=== PATIENT | female | born 1985 | race Caucasian/White ===

== ENCOUNTER 2018-03-19 21:16 | Emergency (ER) | payer MEDICAID ==
[2018-03-19] MEDS ORDERED: Sodium Chloride 0.9% 1,000 ML IV ONE (22:15)
[2018-03-19] MEDS ORDERED: Sodium Chloride 0.9% 10 ML Syringe FLUSH PRN (22:15)
--- NOTE | 2018-03-19 22:21 | EDM.PDOC ---
ED HPI GENERAL MEDICAL PROBLEM - General Chief Complaint: Cardiovascular Problem Stated Complaint: HAS ANEMIA/WEAK/DIZZY/HEART PALPATATIONS Time Seen by Provider: 03/19/18 22:03 Source of Information: Reports: Patient History Limitations: Reports: No Limitations - History of Present Illness INITIAL COMMENTS - FREE TEXT/NARRATIVE: Patient is a 32-year-old female with a history iron deficiency anemia who presents ED complaining of occasional palpitations with dyspnea, fatigue, and lightheadedness. Initially stated she gets dizzy with these episodes but actually it's more likely lightheadedness. 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 States over the past 2 weeks she's noticed these heart palpitations increasing. During these episodes she has some spasming along the lower aspect of her ribs bilaterally that radiates to the epigastric region described as sharp in nature that goes away quickly. She has also been experiencing some epigastric pain and worsening acid reflux. She is on iron supplementation and states that a few weeks ago with onset she had bowel movements that were darker than her normal stool color. This also subsided. She's been chronically anemic for quite some time with difficulties in controlling her her iron levels. Prior to moving in [place] she was supposed to be seeing a grades 7 8 tutor for further direction for her treatment. This has not occurred. Patient has been under stress recently with her job. She denies any history of blood clots or lower extremities or lungs. Denies any recent long travel, control, recent hospitalization, swelling or tenderness to the posterior aspect of her legs, shortness of breath or chest pain with admission to the ED, or any additional complaints. She has a history of endometriosis and has chronic pain to the left adnexal region. She's had a partial hysterectomy with her ovaries remaining. She's had a colonoscopy and EGD which have been normal. She smokes 4-6 cigarettes a day. Alcohol use rarely. Denies any recreational drug use. 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 Denies: Chest Pain, Edema, Syncope GI/Abdominal: Reports: Abdominal Pain (epigastric), Black Stool. Denies: Bloody Stool, Constipation, Diarrhea, Decreased Appetite, Distension, Flatus, Hematemesis, Nausea, Vomiting : Reports: No Symptoms Musculoskeletal: Reports: No Symptoms Skin: Reports: No Symptoms Neurological: Denies: Confusion, Dizziness, Headache, Numbness, Syncope, Tingling, Difficulty Walking, Weakness, Gait Disturbance Psychiatric: Reports: No Symptoms Hematologic/Lymphatic: Reports: Anemia ED EXAM, GENERAL - Physical Exam Exam: See Below Exam Limited By: No Limitations General Appearance: Alert, WD/WN, No Apparent Distress Eye Exam: Bilateral Eye: Normal Inspection, PERRL Ears: Hearing Grossly Normal Nose: Normal Inspection Throat/Mouth: Normal Inspection, Normal Oropharynx, Normal Voice, No Airway Compromise Head: Atraumatic, Normocephalic Neck: Normal Inspection, Supple Respiratory/Chest: No Respiratory Distress, Lungs Clear, Normal Breath Sounds, No Accessory Muscle Use, Chest Non-Tender Cardiovascular: Normal Peripheral Pulses, Regular Rate, Rhythm, No Murmur Peripheral Pulses: 2+: Radial (L), Radial (R) GI/Abdominal: Normal Bowel Sounds, Soft, No Organomegaly, No Distention, Tender (mild tenderness to the epigastric region) Back Exam: Normal Inspection. No: CVA Tenderness (L), CVA Tenderness (R) Extremities: Normal Inspection, Non-Tender, No Pedal Edema, Normal Capillary Refill Neurological: Alert, Oriented, CN II-XII Intact, Normal Cognition, No Motor/ Sensory Deficits Psychiatric: Normal Affect, Normal Mood Skin Exam: Warm, Dry, Intact, Normal Color, No Rash Course - Vital Signs Last Recorded V/S: Last Vital Signs Temp 97.4 F 03/19/18 21:30 Pulse 93 03/19/18 21:30 Resp 22 H 03/19/18 21:30 BP 146/81 H 03/19/18 21:30 Pulse Ox 100 03/19/18 21:30 Orthostatic Blood Pressure [ 130/81 Standing] Orthostatic Blood Pressure [ 126/75 Sitting] Orthostatic Blood Pressure [ 120/69 Supine] - Orders/Labs/Meds Orders: Active Orders 24 hr Category Date Time Status EKG 12 Lead [EKG Documentation Completion] [RC] STAT Care 03/19/18 22:15 Active Holter Monitor 48 Hours [RC] .PRN Care 03/19/18 23:27 Active Orthostatic Vital Signs [RC] ASDIRECTED Care 03/19/18 22:15 Active Peripheral IV Care [RC] . DIRECTED Care 03/19/18 22:15 Active Abdomen Series w Chest 1V [CR] Stat Exams 03/19/18 22:14 Taken OCCULT BLOOD DIAGNOSTIC [OP] Stat Lab 03/19/18 22:53 Ordered Peripheral IV Insertion Adult [OM.PC] Routine Oth 03/19/18 22:15 Ordered Labs: Laboratory Tests 03/19/18 03/19/18 03/19/18 Range/Units 22:30 22:30 22:30 WBC 12.99 H (3.98-10.04) K/mm3 RBC 4.54 (3.98-5.22) M/mm3 Hgb 11.5 (11.2-15.7) gm/L Hct 37.2 (34.1-44.9) % MCV 81.9 (79.4-94.8) fl MCH 25.3 L (25.6-32.2) pg MCHC 30.9 L (32.2-35.5) g/dl RDW Std Deviation 48.3 H (36.4-46.3) fL Plt Count 267 (182-369) K/mm3 MPV 10.1 (9.4-12.3) fl Neutrophils % (Manual) 67 H (40-60) % Band Neutrophils % 0 (0-10) % Lymphocytes % (Manual) 22 (20-40) % Atypical Lymphs % 0 % Monocytes % (Manual) 8 (2-10) % Eosinophils % (Manual) 3 (0.7-5.8) % Basophils % (Manual) 0 L (0.1-1.2) Platelet Estimate Adequate Plt Morphology Comment Normal Anisocytosis 1+ slight Microcytosis 1+ slight Macrocytosis 1+ slight RBC Morph Comment Abnormal Sodium 140 (136-145) mEq/L Potassium 4.1 (3.5-5.1) mEq/L Chloride 107 (98-107) mEq/L Carbon Dioxide 25 (21-32) mEq/L Anion Gap 12.1 (5-15) BUN 12 (7-18) mg/dL Creatinine 0.8 (0.55-1.02) mg/dL Est Cr Clr Drug Dosing 99.99 mL/min Estimated GFR (MDRD) > 60 (>60) mL/min BUN/Creatinine Ratio 15.0 (14-18) Glucose 92 (74-106) mg/dL Calcium 8.9 (8.5-10.1) mg/dL Magnesium 2.1 (1.8-2.4) mg/dl Total Bilirubin 0.1 L (0.2-1.0) mg/dL AST 15 (15-37) U/L ALT 22 (14-59) U/L Alkaline Phosphatase 82 (46-116) U/L Troponin I < 0.017 (0.00-0.056) ng/mL C-Reactive Protein 0.8 (<1.0) mg/dL Total Protein 7.7 (6.4-8.2) g/dl Albumin 3.9 (3.4-5.0) g/dl Globulin 3.8 gm/dL Albumin/Globulin Ratio 1.0 (1-2) Lipase 176 (73-393) U/L TSH 3rd Generation 2.485 (0.358-3.74) uIU/mL Urine Color (Yellow) Urine Appearance (Clear) Urine pH (5.0-8.0) Ur Specific [place] (1.005-1.030) Urine Protein (Negative) Urine Glucose (UA) (Negative) Urine Ketones (Negative) Urine Occult Blood (Negative) Urine Nitrite (Negative) Urine Bilirubin (Negative) Urine Urobilinogen (0.2-1.0) Ur Leukocyte Esterase (Negative) Urine RBC (0-5) /hpf Urine WBC (0-5) /hpf Ur Epithelial Cells (0-5) /hpf Urine Bacteria (FEW) /hpf Urine Mucus (FEW) /hpf 03/19/18 Range/Units 23:28 WBC (3.98-10.04) K/mm3 RBC (3.98-5.22) M/mm3 Hgb (11.2-15.7) gm/L Hct (34.1-44.9) % MCV (79.4-94.8) fl MCH (25.6-32.2) pg MCHC (32.2-35.5) g/dl RDW Std Deviation (36.4-46.3) fL Plt Count (182-369) K/mm3 MPV (9.4-12.3) fl Neutrophils % (Manual) (40-60) % Band Neutrophils % (0-10) % Lymphocytes % (Manual) (20-40) % Atypical Lymphs % % Monocytes % (Manual) (2-10) % Eosinophils % (Manual) (0.7-5.8) % Basophils % (Manual) (0.1-1.2) Platelet Estimate Plt Morphology Comment Anisocytosis Microcytosis Macrocytosis RBC Morph Comment Sodium (136-145) mEq/L Potassium (3.5-5.1) mEq/L Chloride (98-107) mEq/L Carbon Dioxide (21-32) mEq/L Anion Gap (5-15) BUN (7-18) mg/dL Creatinine (0.55-1.02) mg/dL Est Cr Clr Drug Dosing mL/min Estimated GFR (MDRD) (>60) mL/min BUN/Creatinine Ratio (14-18) Glucose (74-106) mg/dL Calcium (8.5-10.1) mg/dL Magnesium (1.8-2.4) mg/dl Total Bilirubin (0.2-1.0) mg/dL AST (15-37) U/L ALT (14-59) U/L Alkaline Phosphatase (46-116) U/L Troponin I (0.00-0.056) ng/mL C-Reactive Protein (<1.0) mg/dL Total Protein (6.4-8.2) g/dl Albumin (3.4-5.0) g/dl Globulin gm/dL Albumin/Globulin Ratio (1-2) Lipase (73-393) U/L TSH 3rd Generation (0.358-3.74) uIU/mL Urine Color Yellow (Yellow) Urine Appearance Slt cloudy H (Clear) Urine pH 7.0 (5.0-8.0) Ur Specific [place] 1.020 (1.005-1.030) Urine Protein Negative (Negative) Urine Glucose (UA) Negative (Negative) Urine Ketones Negative (Negative) Urine Occult Blood Negative (Negative) Urine Nitrite Negative (Negative) Urine Bilirubin Negative (Negative) Urine Urobilinogen 0.2 (0.2-1.0) Ur Leukocyte Esterase Negative (Negative) Urine RBC 0-5 (0-5) /hpf Urine WBC 0-5 (0-5) /hpf Ur Epithelial Cells 10-20 H (0-5) /hpf Urine Bacteria Few (FEW) /hpf Urine Mucus Not seen (FEW) /hpf Meds: Medications Discontinued Medications Generic Name Dose Route Start Last Admin Trade Name Freq PRN Reason Stop Dose Admin Sodium Chloride 1,000 mls @ 999 mls/hr 03/19/18 22:15 03/19/18 22:45 Normal Saline IV 03/19/18 23:15 999 mls/hr ONETIME ONE Administration Pantoprazole Sodium 40 mg 03/20/18 22:18 Protonix Iv IVPUSH 03/20/18 22:19 ONETIME ONE Pantoprazole Sodium 40 mg 03/19/18 22:38 03/19/18 22:46 Protonix Iv IVPUSH 03/19/18 22:39 40 mg ONETIME ONE Administration Sodium Chloride 10 ml 03/19/18 22:15 03/19/18 22:46 Saline Flush FLUSH 10 ml ASDIRECTED PRN Administration Keep Vein Open - Re-Assessments/Exams Free Text/Narrative Re-Assessment/Exam: IV established with normal saline 999 mL per hour and Protonix 40 mg IVP. Initial labs and studies will include: CBC, chem 14, CRP, tsh, mg, lipase, occult blood stool, troponin, UA, abdomen/chest series x-ray, orthostatic vitals , EKG. Orthostatic vitals were negative. EKG sinus rhythm at a rate of 92. NO acute ST changes noted. Stool hemoccult test negative for blood. Labs reviewed: Chemistry panel was essentially normal. Magnesium is 2.1. Troponin less than 0.017. CRP normal. Lipase normal. TSH 2.485. White blood cell count 12.99. Hemoglobin 11.5. Platelet count 267. X-rays of the abdomen and chest reviewed with Dr. Friedman with no concerning findings. 03/19/18 23:30 Reassessment, heart rates in the 70s. patient states she's feeling better with the above therapies. UA is still pending. I have ordered a 48-hour Holter monitor. She will establish care with Dr. Infante over at the [facility] this coming week for reevaluation and continued care. I'm informed the patient that she will take Prilosec 40 mg every day for the next 2 weeks. Refrain from consuming spicy foods, caffeinated beverages, chocolate, or eating/drinking within 4 hours ago in the bed. Patient agrees with plan. Return precautions discussed with the patient. She had knowledge understanding. Discharge instructions as documented. UA: Departure - Departure Time of Disposition: 23:49 Disposition: Home, Self-Care 01 Condition: Good Clinical Impression: Heart palpitations Instructions: Holter Monitoring, Palpitations, [id number] Referrals: Amy Infante MD [Primary Care Provider] - Forms: ED Department Discharge Additional Instructions: Holter monitor will be in place for 48 hours. Please call and make an appointment to be seen by Dr. Infante at the [facility] in [place] this coming week for reexamination and results of the Holter monitor. In addition will have you take Prilosec 40 mg every day half-hour prior to breakfast. Refrain from spicy foods, caffeinated beverages, chocolates, or eating/drinking within 4 hours a going to bed. Please return back to the ED if you develop any new or worsening symptoms as discussed. - My Orders Last 24 Hours: My Active Orders 03/19/18 22:14 Abdomen Series w Chest 1V [CR] Stat 03/19/18 22:15 EKG 12 Lead [EKG Documentation Completion] [RC] STAT Orthostatic Vital Signs [RC] ASDIRECTED Peripheral IV Care [RC] . DIRECTED Peripheral IV Insertion Adult [OM.PC] Routine 03/19/18 22:53 OCCULT BLOOD DIAGNOSTIC [OP] Stat 03/19/18 23:27 Holter Monitor 48 Hours [RC] .PRN - Assessment/Plan Last 24 Hours: My Active Orders 03/19/18 22:14 Abdomen Series w Chest 1V [CR] Stat 03/19/18 22:15 EKG 12 Lead [EKG Documentation Completion] [RC] STAT Orthostatic Vital Signs [RC] ASDIRECTED Peripheral IV Care [RC] . DIRECTED Peripheral IV Insertion Adult [OM.PC] Routine 03/19/18 22:53 OCCULT BLOOD DIAGNOSTIC [OP] Stat 03/19/18 23:27 Holter Monitor 48 Hours [RC] .PRN
[2018-03-19] MEDS ORDERED: Pantoprazole 40 MG Vial IVPUSH ONE (22:38)
[2018-03-20] MEDS ORDERED: Pantoprazole 40 MG Vial IVPUSH ONE (22:18)
--- NOTE | 2018-03-22 09:14 | CR ---
Abdominal series: Supine and upright views of the abdomen were obtained as well as frontal view of the chest. Comparison: No prior study. Heart size and mediastinum are normal. Lungs are clear. Bony structures are unremarkable. Bowel gas pattern is normal. Impression: 1. No abnormality is seen on abdominal series. Diagnostic code #1
== END 2018-03-20 00:02 | disposition home or self-care (01) ==
LOC: JD.ED 21:16 → SUPCPDRO 21:16 → JD.ED 03-20 00:02
DX: R00.2 Palpitations (principal); D64.9 Anemia, unspecified; F17.210 Nicotine dependence, cigarettes, uncomplicated; Z90.710 Acquired absence of both cervix and uterus; Z88.5 Allergy status to narcotic agent
CPT/HCPCS: 36415; 74022; 80053; 81001; 82270; 83690; 83735; 84443; 84484; 85007; 85027; 86140; 93005; 93225; 93226; 96361; 96374; 99285; C9113; J7040; J7050; 99284

== ENCOUNTER 2018-03-28 18:05 | Emergency (ER) | payer MEDICAID ==
--- NOTE | 2018-03-28 20:07 | EDM.PDOC ---
ED HPI GENERAL MEDICAL PROBLEM - General Chief Complaint: Cardiovascular Problem Stated Complaint: DIZZY Time Seen by Provider: 03/28/18 18:12 - History of Present Illness INITIAL COMMENTS - FREE TEXT/NARRATIVE: This is a 32-year-old female with no significant past medical history presenting with a chief complaint of palpitations. Of note the patient was seen last Monday in this emergency department for an identical chief complaint. At that time the PA was able to arrange for outpatient Holter monitoring which patient has completed and gets results on Monday from PCP Dr. Infante. Patient is presenting today because while at work and standing she had some palpitations and felt like she was going to pass out. She has some very minor associated chest pressure. She had no shortness of breath. The symptoms were not exertional in nature. They subsided after a few minutes. Patient has been getting palpitations daily approximate past week week and a half. She has no significant family history of cardiac disease. She has no history herself of being hypertensive she hasn't does not have a history of high cholesterol or diabetes either. She does have about a 5-pack-year smoking history. She was also told an echocardiogram should she received when she was that she has very minor mitral valve prolapse. She only drinks about 1 monster energy drink per day. She also only had one of those in the past week. She denies any other illicit drugs or stimulants. 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 Denies: Cough Cardiovascular: Reports: Chest Pain, Palpitations Endocrine: Reports: No Symptoms GI/Abdominal: Reports: No Symptoms : Reports: No Symptoms Musculoskeletal: Reports: No Symptoms Skin: Reports: No Symptoms Neurological: Reports: No Symptoms Psychiatric: Reports: No Symptoms ED EXAM, GENERAL - Physical Exam Exam: See Below Exam Limited By: Altered Mental Status General Appearance: Alert, No Apparent Distress Head: Atraumatic, Normocephalic Neck: Normal Inspection. No: Carotid Bruit Respiratory/Chest: No Respiratory Distress, Lungs Clear, Normal Breath Sounds Cardiovascular: Normal Peripheral Pulses, Regular Rate, Rhythm, No Murmur Extremities: Normal Inspection, Normal Range of Motion, Non-Tender Neurological: Alert, Oriented, CN II-XII Intact, No Motor/Sensory Deficits Psychiatric: Normal Affect, Normal Mood Skin Exam: Warm, Dry, Intact EKG INTERPRETATION EKG Date: 03/28/18 Time: 18:48 Rhythm: NSR Rate (Beats/Min): 84 [place]: Normal P-Wave: Present QRS: Normal ST-T: Normal QT: Normal Comparison: NA - No Prior EKG Course - Vital Signs Last Recorded V/S: Last Vital Signs Temp 36.8 C 03/28/18 18:14 Pulse 98 03/28/18 18:14 Resp 20 03/28/18 18:14 BP 121/75 03/28/18 18:14 Pulse Ox 100 03/28/18 18:14 - Orders/Labs/Meds Orders: Active Orders 24 hr Category Date Time Status EKG Documentation Completion [RC] STAT Care 03/28/18 18:32 Active Chest 1V Frontal [CR] Stat Exams 03/28/18 18:32 Taken Labs: Laboratory Tests 03/28/18 03/28/18 Range/Units 18:55 18:55 WBC 11.34 H (3.98-10.04) K/mm3 RBC 4.56 (3.98-5.22) M/mm3 Hgb 11.7 (11.2-15.7) gm/L Hct 36.7 (34.1-44.9) % MCV 80.5 (79.4-94.8) fl MCH 25.7 (25.6-32.2) pg MCHC 31.9 L (32.2-35.5) g/dl RDW Std Deviation 46.7 H (36.4-46.3) fL Plt Count 301 (182-369) K/mm3 MPV 9.9 (9.4-12.3) fl Neut % (Auto) 73.0 H (34.0-71.1) % Lymph % (Auto) 16.8 L (19.3-51.7) % [place] % (Auto) 6.7 (4.7-12.5) % Eos % (Auto) 3.1 (0.7-5.8) Baso % (Auto) 0.2 (0.1-1.2) % Neut # (Auto) 8.28 H (1.56-6.13) K/mm3 Lymph # (Auto) 1.91 (1.18-3.74) K/mm3 [place] # (Auto) 0.76 H (0.24-0.36) K/mm3 Eos # (Auto) 0.35 (0.04-0.36) K/mm3 Baso # (Auto) 0.02 (0.01-0.08) K/mm3 Sodium 140 (136-145) mEq/L Potassium 3.8 (3.5-5.1) mEq/L Chloride 104 (98-107) mEq/L Carbon Dioxide 24 (21-32) mEq/L Anion Gap 15.8 H (5-15) BUN 12 (7-18) mg/dL Creatinine 0.7 (0.55-1.02) mg/dL Est Cr Clr Drug Dosing 118.54 mL/min Estimated GFR (MDRD) > 60 (>60) mL/min BUN/Creatinine Ratio 17.1 (14-18) Glucose 87 (74-106) mg/dL Calcium 8.6 (8.5-10.1) mg/dL Total Bilirubin 0.2 (0.2-1.0) mg/dL AST 15 (15-37) U/L ALT 21 (14-59) U/L Alkaline Phosphatase 79 (46-116) U/L Troponin I < 0.017 (0.00-0.056) ng/mL Total Protein 7.8 (6.4-8.2) g/dl Albumin 3.9 (3.4-5.0) g/dl Globulin 3.9 gm/dL Albumin/Globulin Ratio 1.0 (1-2) - Re-Assessments/Exams Free Text/Narrative Re-Assessment/Exam: 03/28/18 20:05 32-year-old female with no significant past medical history presenting with palpitations. Vital signs are normal. Physical exam was unremarkable could auscultate no murmur. EKG was unremarkable as well with no evidence of Yin- Parkinson-White or prolonged QT syndrome. Patient takes no medications regularly with the exception of Prilosec. The patient's symptoms did not begin when she started Prilosec last week either. Today CMP reveals no electrolyte abnormalities. CBC shows no evidence of anemia either. She has a troponin which is negative. There've been no arrhythmias or abnormalities noted on telemetry here. Chest x-ray is unremarkable on my interpretation as well. At this time until the patient is safe for discharge and she may follow up with Dr. Infante on Monday for the results of her Holter monitoring. Patient does mention that she was symptomatic during the time she had the Holter monitoring son hopeful that this will be diagnostic of whatever arrhythmia she is experiencing. Patient was given strict return precautions all questions were answered. She is in agreement with the plan of treatment at this time. Departure - Departure Time of Disposition: 20:07 Disposition: Home, Self-Care 01 Clinical Impression: Palpitations Chest pain Qualifiers: Chest pain type: unspecified Qualified Code(s): R07.9 - Chest pain, unspecified Instructions: Palpitations, [id number] Referrals: PCP,None [Primary Care Provider] - Forms: ED Department Discharge Additional Instructions: You were seen in the emergency department tonight for palpitations. At this time he testing does not show any dangerous cause for these palpitations. It is not necessary for you to receive further testing tonight. Please follow-up with Dr. Infante on Monday for the results of her Holter monitoring. Until that time if he have any new or worsening chest pain, pressure, palpitations, shortness of breath please return to the emergency department for reevaluation. - My Orders Last 24 Hours: My Active Orders 03/28/18 18:32 EKG Documentation Completion [RC] STAT Chest 1V Frontal [CR] Stat - Assessment/Plan Last 24 Hours: My Active Orders 03/28/18 18:32 EKG Documentation Completion [RC] STAT Chest 1V Frontal [CR] Stat
== END 2018-03-28 20:17 | disposition home or self-care (01) ==
LOC: JD.ED 18:05
DX: R00.2 Palpitations (principal); R07.9 Chest pain, unspecified; F17.210 Nicotine dependence, cigarettes, uncomplicated; Z88.5 Allergy status to narcotic agent
CPT/HCPCS: 36415; 71045; 80053; 84484; 85025; 93005; 93010; 99284-25; 99285-25

== ENCOUNTER 2019-07-02 11:42 | Emergency (ER) | payer OTHER ==
--- NOTE | 2019-07-02 13:05 | EDM.PDOC ---
ED HPI GENERAL MEDICAL PROBLEM - General Chief Complaint: Abdominal Pain Stated Complaint: ABDOMINAL PAIN W/MONO Time Seen by Provider: 07/02/19 12:55 - History of Present Illness INITIAL COMMENTS - FREE TEXT/NARRATIVE: 34-year-old female presents emergency room with abdominal pain. This point is progressively getting worse Monday worse in the left side coming from below her ribs down into the left lower quadrant and she has radiating pain into her scapula. The patient was diagnosed with mono on Monday after about a week of progressive weakness and generally not feeling good along with a sore throat. She was seen in the walk-in clinic and had a negative strep test they checked [place] and it was positive. This was done at the [facility] walk-in clinic. She feels tired and fatigued. Not aware of any fevers or chills. Left Lower Abdomen Pain Score (Numeric/FACES): 10 - Related Data Allergies Allergy/AdvReac Type Severity Reaction Status Date / Time morphine Allergy Rash Verified 07/02/19 11:55 Home Meds: Home Meds Iron 1 tab PO BID 03/19/18 [History] Acetaminophen/HYDROcodone [[place] 325-5 MG] 1 - 2 tab PO Q6H #20 tablet 07/02/19 [Rx] Ondansetron [Zofran ODT] 4 mg PO Q6H PRN #10 tab.dis 07/02/19 [Rx] Past Medical History HEENT History: Reports: None Cardiovascular History: Reports: Other (See Below) Other Cardiovascular History: Mitral valve prolapse Respiratory History: Reports: Asthma Genitourinary History: Reports: Renal Calculus, Other (See Below) Other Genitourinary History: Cyst on kidney 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, Musculoskeletal History: Reports: None Neurological History: Reports: None Psychiatric History: Reports: None Endocrine/Metabolic History: Reports: Obesity/BMI 30+ Hematologic History: Reports: Anemia Immunologic History: Reports: None Oncologic (Cancer) History: Reports: None Dermatologic History: Reports: None - Infectious Disease History Infectious Disease History: Reports: None - Past Surgical History GI Surgical History: Reports: Colonoscopy, EGD Female Surgical History: Reports: Hysterectomy, Oophorectomy Social & Family History - Tobacco Use Smoking Status *Q: Current Every Day Smoker Years of Tobacco use: 10 Packs/Tins Daily: 0.5 - Caffeine Use Caffeine Use: Reports: Energy Drinks - Recreational Drug Use Recreational Drug Use: No ED ROS GENERAL - Review of Systems Review Of Systems: See Below Constitutional: Reports: No Symptoms HEENT: Reports: Throat Pain Respiratory: Reports: No Symptoms Cardiovascular: Reports: No Symptoms GI/Abdominal: Reports: Abdominal Pain, Nausea. Denies: Constipation, Diarrhea : Reports: No Symptoms Musculoskeletal: Reports: Other (Generally achy all over) Skin: Reports: No Symptoms Neurological: Reports: No Symptoms Psychiatric: Reports: No Symptoms Hematologic/Lymphatic: Reports: Swollen Glands. Denies: Easy Bleeding, Easy Bruising Immunologic: Reports: No Symptoms ED EXAM, GI/ABD - Physical Exam Exam: See Below Exam Limited By: No Limitations General Appearance: Alert, No Apparent Distress Eyes: Bilateral: Normal Appearance Ears: Normal External Exam, Normal Canal, Hearing Grossly Normal, Normal TMs Nose: Normal Inspection, Normal Mucosa, No Blood Throat/Mouth: Normal Inspection, Normal Lips, Normal Teeth, Normal Gums, Normal Voice, No Airway Compromise, Other (Erythematous posterior pharynx small amount of exudate noted) Head: Atraumatic, Normocephalic Neck: Normal Inspection, Lymphadenopathy (L), Lymphadenopathy (R) Respiratory/Chest: No Respiratory Distress, Lungs Clear, Normal Breath Sounds Cardiovascular: Regular Rate, Rhythm, No Edema, No Murmur GI/Abdominal Exam: Normal Bowel Sounds, Soft, Other (Over JVD rebound or guarding patient has worsening discomfort on her left side compared to were right side. I cannot clearly palpate the margin of the spleen or the liver.) Extremities: Normal Inspection, No Pedal Edema Neurological: Alert, Oriented, Normal Cognition Course - Vital Signs Last Recorded V/S: Last Vital Signs Temp 36.5 C 07/02/19 11:52 Pulse 103 H 07/02/19 11:52 Resp 16 07/02/19 11:52 BP 135/88 07/02/19 11:52 Pulse Ox 99 07/02/19 11:52 - Orders/Labs/Meds Orders: Active Orders 24 hr Category Date Time Status EKG Documentation Completion [RC] STAT Care 07/02/19 13:11 Active Labs: Laboratory Tests 07/02/19 07/02/19 07/02/19 Range/Units 12:27 12:27 14:25 WBC 8.72 (3.98-10.04) K/mm3 RBC 4.90 (3.98-5.22) M/mm3 Hgb 14.5 D (11.2-15.7) gm/dl Hct 43.4 (34.1-44.9) % MCV 88.6 D (79.4-94.8) fl MCH 29.6 (25.6-32.2) pg MCHC 33.4 (32.2-35.5) g/dl RDW Std Deviation 42.7 (36.4-46.3) fL Plt Count 242 (182-369) K/mm3 MPV 10.2 (9.4-12.3) fl Neutrophils % (Manual) 73 H (40-60) % Band Neutrophils % 0 (0-10) % Lymphocytes % (Manual) 22 (20-40) % Atypical Lymphs % 0 % Monocytes % (Manual) 4 (2-10) % Eosinophils % (Manual) 1 (0.7-5.8) % Basophils % (Manual) 0 L (0.1-1.2) Platelet Estimate Adequate RBC Morph Comment Normal Sodium 142 (136-145) mEq/L Potassium 3.8 (3.5-5.1) mEq/L Chloride 106 (98-107) mEq/L Carbon Dioxide 26 (21-32) mEq/L Anion Gap 13.8 (5-15) BUN 10 (7-18) mg/dL Creatinine 0.7 (0.55-1.02) mg/dL Est Cr Clr Drug Dosing 112.20 mL/min Estimated GFR (MDRD) > 60 (>60) mL/min BUN/Creatinine Ratio 14.3 (14-18) Glucose 99 (74-106) mg/dL Calcium 8.8 (8.5-10.1) mg/dL Total Bilirubin 0.2 (0.2-1.0) mg/dL AST 10 L (15-37) U/L ALT 21 (14-59) U/L Alkaline Phosphatase 76 (46-116) U/L Troponin I < 0.017 (0.00-0.056) ng/mL Total Protein 8.0 (6.4-8.2) g/dl Albumin 4.2 (3.4-5.0) g/dl Globulin 3.8 gm/dL Albumin/Globulin Ratio 1.1 (1-2) Lipase 89 (73-393) U/L Urine Color Yellow (Yellow) Urine Appearance Clear (Clear) Urine pH 7.0 (5.0-8.0) Ur Specific [place] 1.015 (1.005-1.030) Urine Protein Negative (Negative) Urine Glucose (UA) Negative (Negative) Urine Ketones Negative (Negative) Urine Occult Blood Negative (Negative) Urine Nitrite Negative (Negative) Urine Bilirubin Negative (Negative) Urine Urobilinogen 0.2 (0.2-1.0) Ur Leukocyte Esterase Negative (Negative) Urine RBC 0-5 (0-5) /hpf Urine WBC 0-5 (0-5) /hpf Ur Squamous Epith Cells 0-5 (0-5) /hpf Urine Bacteria Few (FEW) /hpf Urine Mucus Not seen (FEW) /hpf Meds: Medications Discontinued Medications Generic Name Dose Route Start Last Admin Trade Name Freq PRN Reason Stop Dose Admin Hydrocodone Bitart/Acetaminophen 1 tab 07/02/19 16:21 07/02/19 17:12 [place] 325-5 Mg PO 07/02/19 16:22 1 tab ONETIME ONE Administration Fentanyl 50 mcg 07/02/19 16:21 07/02/19 17:10 Sublimaze IVPUSH 07/02/19 16:22 50 mcg ONETIME ONE Administration Ondansetron HCl 4 mg 07/02/19 13:07 07/02/19 13:13 Zofran Odt PO 07/02/19 13:08 4 mg ONETIME ONE Administration - Re-Assessments/Exams Free Text/Narrative Re-Assessment/Exam: 07/02/19 16:30 Normal chemistries CBC does not show anything alarming urinalysis is not suggestive of any acute pathology. The patient had some relief nausea from her Zofran that we gave her. She's keeping fluids down. I was busy with a critical patient and wished to get her something for pain at this point we'll give her a little bit of fentanyl followed up with the hydrocodone anticipate discharge soon 07/02/19 17:51 She's had good relief with the [place] the fentanyl has worn off. Departure - Departure Time of Disposition: 16:31 Disposition: Home, Self-Care 01 Clinical Impression: Mononucleosis, Abdominal pain - Discharge Information Prescriptions: Acetaminophen/HYDROcodone [[place] 325-5 MG] 1 - 2 tab PO Q6H #20 tablet Ondansetron [Zofran ODT] 4 mg PO Q6H PRN #10 tab.dis PRN Reason: Nausea/Vomiting Referrals: PCP,None [Primary Care Provider] - Forms: ED Department Discharge Additional Instructions: Treatment the emergency room with any questions problems or worsening symptoms. Follow-up in the Hospital clinic for recheck in 2 days [phone]. Avoid any strenuous activity no contact sports. Sepsis Event Note - Evaluation Sepsis Screening Result: No Definite Risk - Focused Exam Vital Signs: Vital Signs Temp Pulse Resp BP Pulse Ox 07/02/19 11:52 36.5 C 103 H 16 135/88 99 Date Exam was Performed: 07/02/19 Time Exam was Performed: 17:57 - My Orders Last 24 Hours: My Active Orders 07/02/19 13:11 EKG Documentation Completion [RC] STAT - Assessment/Plan Last 24 Hours: My Active Orders 07/02/19 13:11 EKG Documentation Completion [RC] STAT
[2019-07-02] MEDS ORDERED: Ondansetron 4 MG Tab.DIS PO ONE (13:07)
[2019-07-02] MEDS ORDERED: fentaNYL 100 MCG/2 ML SDV IVPUSH ONE (16:21)
[2019-07-02] MEDS ORDERED: Acetaminophen/HYDROcodone 325-5 MG Tab PO ONE (16:21)
== END 2019-07-02 18:25 | disposition home or self-care (01) ==
LOC: JD.ED 11:42
DX: R10.32 Left lower quadrant pain (principal); B27.90 Infectious mononucleosis, unspecified without complication; D64.9 Anemia, unspecified; E66.9 Obesity, unspecified; Z68.33 Body mass index [BMI] 33.0-33.9, adult; F17.210 Nicotine dependence, cigarettes, uncomplicated; Z88.5 Allergy status to narcotic agent; Z79.899 Other long term (current) drug therapy
CPT/HCPCS: 36415; 80053; 81001; 83690; 84484; 85007; 85027; 93005; 96374; 99284; A9270; J3010; 93010; 99283

== ENCOUNTER 2019-08-09 14:32 | Emergency (ER) | payer BC, OTHER ==
--- NOTE | 2019-08-09 14:48 | EDM.PDOC ---
ED HPI GENERAL MEDICAL PROBLEM - General Chief Complaint: General Stated Complaint: DIZZY/LIGHT HEADED/RIGHT ARM HURTS Time Seen by Provider: 08/09/19 14:40 Source of Information: Reports: Patient, RN Notes Reviewed History Limitations: Reports: No Limitations - History of Present Illness INITIAL COMMENTS - FREE TEXT/NARRATIVE: Patient is a 34-year-old female who presents to the ED for the evaluation of dizziness/lightheadedness, and right arm pain. The patient notes that around 630 this morning she woke up, and had some right arm pain. This originates in her anterior upper chest just below her collarbone, and does radiate down her right arm. She states that the pain does worsen with movement. She did not take any sort of pain relief medications for this such as Tylenol ibuprofen. 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 She states that around 7 AM however she developed sudden onset dizziness and lightheadedness, she denies any headache with this. But she is not had any dizziness like this before ever. She states that when she is walking, she feels severely off-kilter, like she has been drinking all night. She is not having any nausea or vomiting due to this. She states that the dizziness feels as if there is the world spinning around her, and that the world is moving when she is sitting still. She is not having any blurred vision or double vision, facial pain, ears ringing or any facial droop or other neurologic symptoms. The patient does not have a primary care provider, she is also a smoker. 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) Other Treatments PUBLIC MESSAGE SERVICE SUPERVISOR: none Right Anterior Chest Pain Score (Numeric/FACES): 4 - Related Data Allergies Allergy/AdvReac Type Severity Reaction Status Date / Time morphine Allergy Rash Verified 07/02/19 11:55 Home Meds: Home Meds Iron 65 mg PO BID 08/09/19 [History] Mv-Min/Iron/Folic/Calcium/Vitk [Women's Daily Formula Tablet] 1 tab PO DAILY [History] Past Medical History Cardiovascular History: Reports: Other (See Below) Other Cardiovascular History: Mitral valve prolapse Respiratory History: Reports: Asthma Genitourinary History: Reports: Renal Calculus, Other (See Below) Other Genitourinary History: Cyst on kidney 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, Psychiatric History: Reports: Anxiety Endocrine/Metabolic History: Reports: Obesity/BMI 30+ Hematologic History: Reports: Anemia - Past Surgical History GI Surgical History: Reports: Colonoscopy, EGD Female Surgical History: Reports: Hysterectomy, Oophorectomy Social & Family History - Family History Neurological: Reports: CVA (states that 2 members of immediate family have had strokes at early age) - Tobacco Use Smoking Status *Q: Current Every Day Smoker Years of Tobacco use: 7 Packs/Tins Daily: 0.5 - Caffeine Use Caffeine Use: Reports: Energy Drinks - Recreational Drug Use Recreational Drug Use: No ED ROS GENERAL - Review of Systems Review Of Systems: See Below Constitutional: Denies: Fever, Chills HEENT: Reports: Vertigo (feelings of world spinning dizziness). Denies: Ear Pain, Rhinitis, Sinus Problem, Throat Pain, Vision Change Respiratory: Denies: Shortness of Breath Cardiovascular: Reports: Chest Pain (R anterior chest pain that radiates to R arm) GI/Abdominal: Denies: Abdominal Pain, Nausea, Vomiting : Denies: Dysuria Musculoskeletal: Reports: Arm Pain (R arm pain ) Neurological: Reports: Dizziness (world spinning dizziness of sudden onset), Gait Disturbance (states that she is very wobbly when she walks). Denies: Confusion, Headache, Pre-Existing Deficit, Syncope, Tingling, Trouble Speaking, Weakness ED EXAM, GENERAL - Physical Exam Exam: See Below Exam Limited By: No Limitations General Appearance: Alert, WD/WN, No Apparent Distress Eye Exam: Right Eye: Nystagmus (several tics of Rightward horizontal nystagmus, Pt states the dizziness was replicated at this time), Bilateral Eye: EOMI, Normal Inspection, PERRL Ears: Normal External Exam, Normal Canal, Hearing Grossly Normal, Normal TMs Nose: Normal Inspection Throat/Mouth: Normal Inspection, Normal Lips, Normal Teeth, Normal Gums, Normal Oropharynx, Normal Voice, No Airway Compromise Head: Atraumatic, Normocephalic Neck: Normal Inspection Respiratory/Chest: No Respiratory Distress, Lungs Clear, Normal Breath Sounds, No Accessory Muscle Use, Other (R anterior chest tender to palpation of 3-4th rib space) Cardiovascular: Normal Peripheral Pulses, Regular Rate, Rhythm, No Edema, No Murmur Peripheral Pulses: 3+: Radial (L), Radial (R) GI/Abdominal: Normal Bowel Sounds, Soft, Non-Tender, No Distention, No Mass Extremities: Slow Capillary Refill (mildly increased cap refill), Mottled ( bilateral upper and lower ) Neurological: Alert, Oriented, CN II-XII Intact (grossly), Normal Cognition, No Motor/Sensory Deficits (heel/st is appropriate, finger to nose is appropriate) Psychiatric: Normal Affect, Normal Mood Skin Exam: Warm, Dry, Intact, No Rash, Mottled (bilateral upper and lower extremities. hands are cold to touch) Course - Vital Signs Last Recorded V/S: Last Vital Signs Temp 97.1 F 08/09/19 14:48 Pulse 93 08/09/19 14:48 Resp 20 08/09/19 14:48 BP 136/95 H 08/09/19 14:48 Pulse Ox 100 08/09/19 14:48 - Orders/Labs/Meds Meds: Medications Discontinued Medications Generic Name Dose Route Start Last Admin Trade Name [place] PRN Reason Stop Dose Admin Meclizine HCl 25 mg 08/09/19 15:42 08/09/19 16:17 Antivert PO 08/09/19 15:43 25 mg ONETIME ONE Administration - Re-Assessments/Exams Free Text/Narrative Re-Assessment/Exam: 08/09/19 15:10 Patient presents to the ED for the evaluation of sudden onset dizziness/ lightheadedness, and also right arm pain. I do believe her right arm pain is due to costochondritis in nature, it is easily reproducible on exam. Further suspect the patient's dizziness and lightheadedness is due to vertigo, as it was replicated on exam as well with nystagmus noted. However due to her history of early age strokes in her family, patient was requesting a CT, I did explain the risk to benefit ratio of this, she notes that she was evaluated at the walk-in clinic and it was felt likely that it also was vertigo, but she was directed to come to the ER for a head CT to rule out any other changes, so she would like a head CT done today. I have ordered a head CT due to this reason, however I suspect there to be low yield of findings. If head CT is negative, will treat as vertigo and costochondritis and discharged the patient home. 08/09/19 15:42 CT was negative for any acute intracranial abnormalities. Patient will be given 25 mg of meclizine for suspected vertigo treatment, she will be discharged home and treated as such on outpatient basis with other general recommendations. Departure - Departure Time of Disposition: 16:26 Disposition: Home, Self-Care 01 Condition: Fair Clinical Impression: Vertigo, Musculoskeletal chest pain - Discharge Information *PRESCRIPTION DRUG MONITORING PROGRAM REVIEWED*: No *COPY OF PRESCRIPTION DRUG MONITORING REPORT IN PATIENT YANNICK: No Instructions: Vertigo, [id number], Chest Wall Pain, [id number] Referrals: PCP,None [Primary Care Provider] - Forms: ED Department Discharge Additional Instructions: You were evaluated in the ER today regarding your dizziness/lightheadedness and right arm pain. You did have a head CT done at today's visit, and this demonstrated no acute abnormalities or stroke. Your symptoms are clinically consistent with vertigo, you were treated with meclizine in this ER, this did seem to help relieve your symptoms fairly well. Recommend you take 25 mg of meclizine up to 4 times daily for further feelings of vertigo. This is an [id number] medication, commonly marketed as Antivert or Bonine, it may be located near Benadryl or medications for motion sickness. You may also ask the pharmacist present to help you locate it. Recommend you increase your oral fluid intake as well. Try to keep well rested. As for the right arm pain, this is likely due to a musculoskeletal strain of the chest wall, you may take 600 mg ibuprofen every 2 hours for further pain relief. Do not exceed 3200 mg of ibuprofen in a 24-hour time span. Please return to the ER at any time if your symptoms change or worsen. Sepsis Event Note - Focused Exam Vital Signs: Vital Signs Temp Pulse Resp BP Pulse Ox 08/09/19 14:48 97.1 F 93 20 136/95 H 100 Date Exam was Performed: 08/09/19 Time Exam was Performed: 21:16
--- NOTE | 2019-08-09 15:38 | CT ---
Head CT Technique: Multiple axial sections through the brain were obtained. Intravenous contrast was not utilized. Comparison: No prior intracranial imaging is available. Findings: Ventricles along with basal cisterns and sulci over the convexities appear within normal limits for the patient's age. No abnormal parenchymal densities are seen. No evidence of intracranial hemorrhage. No midline shift or mass effect is seen. Bone window settings were reviewed which showed the visualized paranasal sinuses and mastoid sinuses to appear clear. No acute calvarial abnormality is appreciated. Impression: 1. No abnormality is identified on noncontrast head CT exam. Diagnostic code #1 This report was dictated in [place] Standard Time
== END 2019-08-09 16:46 | disposition home or self-care (01) ==
LOC: JD.ED 14:32
DX: R42 Dizziness and giddiness (principal); R07.89 Other chest pain; F17.210 Nicotine dependence, cigarettes, uncomplicated; J45.909 Unspecified asthma, uncomplicated; E66.9 Obesity, unspecified; Z88.5 Allergy status to narcotic agent
CPT/HCPCS: 70450; 99284; A9270; 99283

== ENCOUNTER 2020-04-16 16:59 | Emergency (ER) | payer BC ==
[2020-04-16] MEDS ORDERED: Iopamidol 612 MG/ML 100 ML Bottle IVPUSH ONE (19:04)
[2020-04-16] MEDS: Sodium Chloride 0.9% 10 ML Syringe FLUSH PRN ×2 (19:40→20:44)
--- NOTE | 2020-04-16 20:25 | CT ---
CT chest Technique: Multiple axial sections sections were obtained from above the lung apices inferiorly through the lung bases. Intravenous contrast was utilized. Comparison: No prior chest CT is available, chest x-ray of 03/28/18. Mediastinum and hilar regions show no adenopathy or mass. No axillary adenopathy is seen. No pericardial fluid is seen. Lungs show no acute parenchymal change. Bone window settings were reviewed which shows no acute osseous finding. Impression: 1. Nothing acute is appreciated on CT study of the chest. Diagnostic code #1 CT abdomen and pelvis Technique: Multiple axial sections were obtained from above the dome of the diaphragm inferiorly through the pubic symphysis. Intravenous contrast was utilized. No oral contrast has been given. Findings: Liver contains no focal abnormality. Gallbladder contains no calcified gallstones. Adrenal glands show no nodule. Pancreas is normal. Kidneys show symmetric contrast enhancement. Small cyst is noted within the upper left kidney measuring 8 mm. No additional renal abnormality is seen. Pancreas shows no discrete abnormality. Aorta shows no aneurysm. No retroperitoneal adenopathy or mesenteric abnormalities are seen. No pelvic mass or adenopathy is identified. Appendix felt to be visualized and is normal. No free fluid is seen within the abdomen or pelvis. Bone window settings were reviewed. Disc space narrowing at L5-S1 with vacuum disc phenomena. Impression: 1. Nothing acute is seen on CT study of the abdomen and pelvis. Diagnostic code #2 Study was dictated in MDT
--- NOTE | 2020-04-16 20:28 | CT ---
CT cervical spine Technique: Multiple axial sections through the cervical spine were obtained. Study was obtained from above C1 inferiorly to the bottom of T2. Reconstructed sagittal and coronal images were reviewed. Findings: Vertebral body heights and disc spaces are fairly well preserved. No bony central or bony neural foraminal stenosis is seen. No fracture is seen. No subluxation is appreciated. Impression: 1. Nothing acute is appreciated on CT study of the cervical spine. Diagnostic code #1 Study was dictated in MDT
--- NOTE | 2020-04-16 20:32 | CT ---
Head CT Technique: Multiple axial sections through the brain were obtained. Intravenous contrast was utilized. Comparison: Prior head CT study of 08/09/19. Findings: Ventricles along with basal cisterns and sulci over the convexities are within normal limits for the patient's age. No abnormal parenchymal densities are seen. No evidence of intracranial hemorrhage. No midline shift or mass effect is seen. Bone window settings were reviewed. Opacified ethmoid sinuses are noted. Right frontal sinus is opacified. Air-fluid level appears to be present within left frontal sinus. Mild mucosal thickening within the sphenoid sinus as well as mild mucosal thickening within the maxillary sinuses is noted. This most likely represents pre-existing sinusitis. No acute calvarial finding is seen. Visualized mastoid sinuses are clear. Impression: 1. Sinus disease most likely representing pre-existing acute sinusitis. This may also represent acute on chronic sinusitis. 2. No acute intracranial abnormality is appreciated. Diagnostic code #2 Study was dictated in MDT
[2020-04-16] MEDS ORDERED: Ondansetron 4 MG/2 ML SDV IVPUSH ONE (20:38)
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
--- NOTE | 2020-04-16 21:05 | CR ---
Left hand: 3 views of the left hand were obtained. Comparison: No prior hand study. No good PA view was obtained. Joint spaces appear to be fairly well maintained. No discrete fracture, dislocation or other bony abnormality is appreciated. Impression: 1. Slightly suboptimal positioning. Within this limitation, nothing acute is definitely appreciated. Diagnostic code #2 Study was dictated in MDT
--- NOTE | 2020-04-16 21:05 | CR ---
Left shoulder: 3 views of the left shoulder were obtained. Comparison: No previous shoulder studies available. Glenohumeral joint and acromioclavicular joint appears normal. No acute fracture or other bony abnormality is appreciated. Impression: 1. No abnormality is identified on 3 view left shoulder exam. Diagnostic code #1 Study was dictated in MDT
== END 2020-04-16 23:03 | disposition home or self-care (01) ==
LOC: JD.ED 16:59
DX: S16.1XXA Strain of muscle, fascia and tendon at neck level, initial encounter (principal); S20.212A Contusion of left front wall of thorax, initial encounter; M79.642 Pain in left hand; J45.909 Unspecified asthma, uncomplicated; E66.9 Obesity, unspecified; Z68.33 Body mass index [BMI] 33.0-33.9, adult; F17.210 Nicotine dependence, cigarettes, uncomplicated; Z88.5 Allergy status to narcotic agent; V89.2XXA Person injured in unspecified motor-vehicle accident, traffic, initial encounter
CPT/HCPCS: 29125; 36415; 70450; 71260; 72125; 73030; 73130; 74177; 80053; 81003; 85025; 93005; 96374; 99284; J2405; Q9967

== ENCOUNTER 2020-06-04 15:53 | Emergency (ER) | payer BC, OTHER ==
[2020-06-04] MEDS ORDERED: Sodium Chloride 0.9% 1,000 ML IV STA (16:30)
[2020-06-04] MEDS ORDERED: Sodium Chloride 0.9% 10 ML Syringe FLUSH PRN ×2 (16:30→17:42)
[2020-06-04] MEDS ORDERED: Ondansetron 4 MG/2 ML SDV IVPUSH ONE (16:30)
[2020-06-04] MEDS ORDERED: HYDROmorphone 1 MG/ML Syringe IVPUSH ONE (16:32)
[2020-06-04] MEDS ORDERED: Iopamidol 612 MG/ML 100 ML Bottle IVPUSH ONE (17:42)
[2020-06-04] MEDS ORDERED: Diatrizoate Meglumine/Diatrizoate Sodium 37% 120 ML Bottle PO ONE (17:42)
[2020-06-04] MEDS ORDERED: HYDROmorphone 0.5 MG/0.5 ML Syringe IVPUSH ONE (19:30)
--- NOTE | 2020-06-04 19:38 | EDM.PDOC ---
ED HPI GENERAL MEDICAL PROBLEM - General Chief Complaint: Abdominal Pain Stated Complaint: ABDOMINAL PAIN Time Seen by Provider: 06/04/20 16:12 Source of Information: Reports: Patient History Limitations: Reports: No Limitations - History of Present Illness INITIAL COMMENTS - FREE TEXT/NARRATIVE: The patient presents with RLQ abdominal pain. This started yesterday. She has not felt well for a couple of days though. She just finished zithromax for an ear infection and had nausea. She has no fever, chills, cough, congestion, runny nose chest pain or shortness of breath. She still has her appendix and gallbladder. She has no dysuria or hematuria. Onset: Gradual Duration: Day(s): Location: Reports: Abdomen Quality: Reports: Sharp Severity: Moderate Improves with: Reports: None Worsens with: Reports: None Associated Symptoms: Reports: Nausea/Vomiting. Denies: Chest Pain, Cough, Fever/Chills, Headaches, Shortness of Breath Right Lower Abdomen Pain Score (Numeric/FACES): 7 - Related Data Allergies Allergy/AdvReac Type Severity Reaction Status Date / Time morphine Allergy Rash Verified 06/04/20 16:12 Home Meds: Home Meds Iron 65 mg PO BID 08/09/19 [History] Mv-Min/Iron/Folic/Calcium/Vitk [Women's Daily Formula Tablet] 1 tab PO DAILY 08/09/19 [History] Hydrocodone/Acetaminophen [Hydrocodone-Acetamin 5-325 mg] 1 - 2 each PO Q6HR PRN #20 tablet 06/04/20 [Rx] Past Medical History HEENT History: Reports: None Cardiovascular History: Reports: Other (See Below) Other Cardiovascular History: Mitral valve prolapse Respiratory History: Reports: Asthma Gastrointestinal History: Reports: GERD Genitourinary History: Reports: Other (See Below) Other Genitourinary History: Cyst on kidney 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: 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, Musculoskeletal History: Reports: None Neurological History: Reports: None Psychiatric History: Reports: Anxiety Endocrine/Metabolic History: Reports: Obesity/BMI 30+ Hematologic History: Reports: Anemia Immunologic History: Reports: None Oncologic (Cancer) History: Reports: None Dermatologic History: Reports: None - Infectious Disease History Infectious Disease History: Reports: None - Past Surgical History Head Surgeries/Procedures: Reports: None HEENT Surgical History: Reports: Oral Surgery GI Surgical History: Reports: Colonoscopy, EGD Female Surgical History: Reports: Hysterectomy, Oophorectomy Social & Family History - Family History Family Medical History: No Pertinent Family History Cardiac: Reports: Heart Valve Replacement, Hypertension Neurological: Reports: CVA Endocrine/Metabolic: Reports: Diabetes, type II - Tobacco Use Tobacco Use Status *Q: Current Every Day Tobacco User Years of Tobacco use: 13 Packs/Tins Daily: 0.5 - Caffeine Use Caffeine Use: Reports: Energy Drinks - Recreational Drug Use Recreational Drug Use: No ED ROS GENERAL - Review of Systems Review Of Systems: See Below Constitutional: Reports: No Symptoms HEENT: Reports: No Symptoms Respiratory: Reports: No Symptoms Cardiovascular: Reports: No Symptoms Endocrine: Reports: No Symptoms GI/Abdominal: Reports: Abdominal Pain, Nausea. Denies: Diarrhea, Vomiting : Reports: No Symptoms ED EXAM, GI/ABD - Physical Exam Exam: See Below Exam Limited By: No Limitations General Appearance: Alert, No Apparent Distress Ears: Normal External Exam Nose: Normal Inspection Head: Atraumatic, Normocephalic Neck: Normal Inspection Respiratory/Chest: No Respiratory Distress, Lungs Clear, Normal Breath Sounds Cardiovascular: Regular Rate, Rhythm, No Edema, No Murmur GI/Abdominal Exam: Soft, No Mass, Tender (Moderate tenderness to the RLQ) Course - Vital Signs Last Recorded V/S: Last Vital Signs Temp 96.8 F L 06/04/20 16:15 Pulse 99 06/04/20 16:15 Resp 18 06/04/20 16:15 BP 138/70 06/04/20 16:15 Pulse Ox 100 06/04/20 16:15 - Orders/Labs/Meds Orders: Active Orders 24 hr Category Date Time Status Peripheral IV Care [RC] . DIRECTED Care 06/04/20 16:31 Active Abdomen Pelvis w Cont [CT] Stat Exams 06/04/20 16:30 Taken Sodium Chloride 0.9% [Saline Flush] Med 06/04/20 16:30 Active 10 ml FLUSH ASDIRECTED PRN Sodium Chloride 0.9% [Saline Flush] Med 06/04/20 17:42 Active 10 ml FLUSH ONETIME PRN ED Antiemetic Medication Reflex [OM.PC] Stat Oth 06/04/20 16:31 Ordered Peripheral IV Insertion Adult [OM.PC] Stat Oth 06/04/20 16:30 Ordered Medication Orders Sodium Chloride (Saline Flush) 10 ml FLUSH ASDIRECTED PRN PRN Reason: Keep Vein Open Last Admin: 06/04/20 17:17 Dose: 10 ml Documented by: JARVIS Sodium Chloride (Saline Flush) 10 ml FLUSH ONETIME PRN PRN Reason: Keep Vein Open Last Admin: 06/04/20 18:30 Dose: 10 ml Documented by: [id number] Labs: Laboratory Tests 06/04/20 06/04/20 06/04/20 Range/Units 17:05 17:05 17:05 WBC 10.07 H (3.98-10.04) K/mm3 RBC 4.81 (3.98-5.22) M/mm3 Hgb 14.4 (11.2-15.7) gm/dl Hct 44.0 (34.1-44.9) % MCV 91.5 (79.4-94.8) fl MCH 29.9 (25.6-32.2) pg MCHC 32.7 (32.2-35.5) g/dl RDW Std Deviation 44.1 (36.4-46.3) fL Plt Count 247 (182-369) K/mm3 MPV 10.0 (9.4-12.3) fl Neut % (Auto) 72.9 H (34.0-71.1) % Lymph % (Auto) 13.2 L (19.3-51.7) % [place] % (Auto) 6.8 (4.7-12.5) % Eos % (Auto) 6.5 H (0.7-5.8) Baso % (Auto) 0.2 (0.1-1.2) % Neut # (Auto) 7.35 H (1.56-6.13) K/mm3 Lymph # (Auto) 1.33 (1.18-3.74) K/mm3 [place] # (Auto) 0.68 H (0.24-0.36) K/mm3 Eos # (Auto) 0.65 H (0.04-0.36) K/mm3 Baso # (Auto) 0.02 (0.01-0.08) K/mm3 Manual Slide Review Normal smear Sodium 138 (136-145) mEq/L Potassium 3.9 (3.5-5.1) mEq/L Chloride 104 (98-107) mEq/L Carbon Dioxide 24 (21-32) mEq/L Anion Gap 13.9 (5-15) BUN 10 (7-18) mg/dL Creatinine 0.7 (0.55-1.02) mg/dL Est Cr Clr Drug Dosing 116.39 mL/min Estimated GFR (MDRD) > 60 (>60) mL/min BUN/Creatinine Ratio 14.3 (14-18) Glucose 90 (74-106) mg/dL Calcium 9.0 (8.5-10.1) mg/dL Total Bilirubin 0.3 (0.2-1.0) mg/dL AST 12 L (15-37) U/L ALT 24 (14-59) U/L Alkaline Phosphatase 80 (46-116) U/L Total Protein 7.7 (6.4-8.2) g/dl Albumin 3.9 (3.4-5.0) g/dl Globulin 3.8 gm/dL Albumin/Globulin Ratio 1.0 (1-2) Lipase 78 (73-393) U/L HCG, Qual Negative (NEGATIVE) Urine Color (Yellow) Urine Appearance (Clear) Urine pH (5.0-8.0) Ur Specific Telephone (1.005-1.030) Urine Protein (Negative) Urine Glucose (UA) (Negative) Urine Ketones (Negative) Urine Occult Blood (Negative) Urine Nitrite (Negative) Urine Bilirubin (Negative) Urine Urobilinogen (0.2-1.0) Ur Leukocyte Esterase (Negative) Urine RBC (0-5) /hpf Urine WBC (0-5) /hpf Ur Squamous Epith Cells (0-5) /hpf Urine Bacteria (FEW) /hpf Urine Mucus (FEW) /hpf 06/04/20 Range/Units 17:08 WBC (3.98-10.04) K/mm3 RBC (3.98-5.22) M/mm3 Hgb (11.2-15.7) gm/dl Hct (34.1-44.9) % MCV (79.4-94.8) fl MCH (25.6-32.2) pg MCHC (32.2-35.5) g/dl RDW Std Deviation (36.4-46.3) fL Plt Count (182-369) K/mm3 MPV (9.4-12.3) fl Neut % (Auto) (34.0-71.1) % Lymph % (Auto) (19.3-51.7) % [place] % (Auto) (4.7-12.5) % Eos % (Auto) (0.7-5.8) Baso % (Auto) (0.1-1.2) % Neut # (Auto) (1.56-6.13) K/mm3 Lymph # (Auto) (1.18-3.74) K/mm3 [place] # (Auto) (0.24-0.36) K/mm3 Eos # (Auto) (0.04-0.36) K/mm3 Baso # (Auto) (0.01-0.08) K/mm3 Manual Slide Review Sodium (136-145) mEq/L Potassium (3.5-5.1) mEq/L Chloride (98-107) mEq/L Carbon Dioxide (21-32) mEq/L Anion Gap (5-15) BUN (7-18) mg/dL Creatinine (0.55-1.02) mg/dL Est Cr Clr Drug Dosing mL/min Estimated GFR (MDRD) (>60) mL/min BUN/Creatinine Ratio (14-18) Glucose (74-106) mg/dL Calcium (8.5-10.1) mg/dL Total Bilirubin (0.2-1.0) mg/dL AST (15-37) U/L ALT (14-59) U/L Alkaline Phosphatase (46-116) U/L Total Protein (6.4-8.2) g/dl Albumin (3.4-5.0) g/dl Globulin gm/dL Albumin/Globulin Ratio (1-2) Lipase (73-393) U/L HCG, Qual (NEGATIVE) Urine Color Light yellow (Yellow) Urine Appearance Clear (Clear) Urine pH 7.0 (5.0-8.0) Ur Specific Telephone 1.025 (1.005-1.030) Urine Protein Negative (Negative) Urine Glucose (UA) Negative (Negative) Urine Ketones Negative (Negative) Urine Occult Blood Negative (Negative) Urine Nitrite Negative (Negative) Urine Bilirubin Negative (Negative) Urine Urobilinogen 0.2 (0.2-1.0) Ur Leukocyte Esterase Negative (Negative) Urine RBC 0-5 (0-5) /hpf Urine WBC 0-5 (0-5) /hpf Ur Squamous Epith Cells 10-20 H (0-5) /hpf Urine Bacteria Moderate H (FEW) /hpf Urine Mucus Few (FEW) /hpf Meds: Medications Generic Name Dose Route Start Last Admin Trade Name Freq PRN Reason Stop Dose Admin Sodium Chloride 10 ml 06/04/20 16:30 06/04/20 17:17 Saline Flush FLUSH 10 ml ASDIRECTED PRN Administration Keep Vein Open Sodium Chloride 10 ml 06/04/20 17:42 06/04/20 18:30 Saline Flush FLUSH 10 ml ONETIME PRN Administration Keep Vein Open Discontinued Medications Generic Name Dose Route Start Last Admin Trade Name Freq PRN Reason Stop Dose Admin Diatrizoate Meglum/Diatrizoate Sod 90 ml 06/04/20 17:42 06/04/20 18:30 Gastrografin 37% PO 06/04/20 17:43 90 ml ONETIME ONE Administration Hydromorphone HCl 1 mg 06/04/20 16:32 06/04/20 17:12 Dilaudid IVPUSH 06/04/20 16:33 1 mg ONETIME ONE Administration Hydromorphone HCl 0.5 mg 06/04/20 19:30 Dilaudid IVPUSH 06/04/20 19:31 ONETIME ONE Sodium Chloride 1,000 mls @ 1,000 mls/hr 06/04/20 16:30 06/04/20 17:12 Normal Saline IV 06/04/20 17:29 1,000 mls/hr .BOLUS STA Administration Iopamidol 100 ml 06/04/20 17:42 06/04/20 18:30 Isovue-300 (61%) IVPUSH 06/04/20 17:43 100 ml ONETIME ONE Administration Ondansetron HCl 4 mg 06/04/20 16:30 06/04/20 17:12 Zofran IVPUSH 06/04/20 16:31 4 mg ONETIME ONE Administration - Re-Assessments/Exams Free Text/Narrative Re-Assessment/Exam: 06/04/20 19:35 I ordered an IV NS 1L bolus, zofran 4mg IV, dilaudid 1mg IV, labs, UA and a CT of the abdomen and pelvis. Her WBC was slightly elevated at 10.07. Her CMP looks good. Her lipase and HCG are negative. Her UA shows no UTI. Her CT shows prominent right adnexal lesions present measuring up to 2.8cm. Follow up pelvic US may be of further benefit as clinically warranted. No evidence of appendicitis. She still has some pain so I ordered dilaudid 0.5mg IV. Departure - Departure Time of Disposition: 19:40 Disposition: Home, Self-Care 01 Condition: Good Clinical Impression: Ovarian cyst Qualifiers: Laterality: right Qualified Code(s): N83.201 - Unspecified ovarian cyst, right side - Discharge Information *PRESCRIPTION DRUG MONITORING PROGRAM REVIEWED*: No *COPY OF PRESCRIPTION DRUG MONITORING REPORT IN PATIENT YANNICK: No Prescriptions: Hydrocodone/Acetaminophen [Hydrocodone-Acetamin 5-325 mg] 1 - 2 each PO Q6HR PRN #20 tablet PRN Reason: Pain Referrals: Tammy Momin PA-C [Primary Care Provider] - 1 Week Additional Instructions: Take motrin or tylenol for pain. If that does not work, try the hydrocodone. Follow up with Tammy Momin for an ultrasound. Please return if you are worse. Sepsis Event Note (ED) - Evaluation Sepsis Screening Result: No Definite Risk - Focused Exam Vital Signs: Vital Signs Temp Pulse Resp BP Pulse Ox 06/04/20 16:15 96.8 F L 99 18 138/70 100 - My Orders Last 24 Hours: My Active Orders 06/04/20 16:30 Abdomen Pelvis w Cont [CT] Stat Sodium Chloride 0.9% [Saline Flush] 10 ml FLUSH ASDIRECTED PRN Peripheral IV Insertion Adult [OM.PC] Stat 06/04/20 16:31 Peripheral IV Care [RC] . DIRECTED ED Antiemetic Medication Reflex [OM.PC] Stat 06/04/20 17:42 Sodium Chloride 0.9% [Saline Flush] 10 ml FLUSH ONETIME PRN - Assessment/Plan Last 24 Hours: My Active Orders 06/04/20 16:30 Abdomen Pelvis w Cont [CT] Stat Sodium Chloride 0.9% [Saline Flush] 10 ml FLUSH ASDIRECTED PRN Peripheral IV Insertion Adult [OM.PC] Stat 06/04/20 16:31 Peripheral IV Care [RC] . DIRECTED ED Antiemetic Medication Reflex [OM.PC] Stat 06/04/20 17:42 Sodium Chloride 0.9% [Saline Flush] 10 ml FLUSH ONETIME PRN
--- NOTE | 2020-06-05 08:39 | CT ---
PROCEDURE INFORMATION: Exam: CT Abdomen And Pelvis With Contrast Exam date and time: 06/04/2020 5:48 PM Age: 34 years old Clinical indication: Abdominal pain; Localized; Right lower quadrant (rlq); Additional info: IV came apart at the hub upon first and second injection. Contrast injection had to be done with the patient's right arm down by her side to allow for contrast administration. TECHNIQUE: Imaging protocol: Computed tomography of the abdomen and pelvis with intravenous contrast. Radiation optimization: All CT scans at this facility use at least one of these dose optimization techniques: automated exposure control; mA and/or kV adjustment per patient size (includes targeted exams where dose is matched to clinical indication); or iterative reconstruction. Contrast material: ISOVUE 300; Contrast volume: 100 ml; Contrast route: INTRAVENOUS (IV); Other contrast: Oral, Gastrograffin, 90; COMPARISON: CT Chest Abdomen Pelvis w Cont 04/16/2020 6:51 PM FINDINGS: Lungs: Atelectatic changes noted within the lung bases. Liver: Normal. No mass. Gallbladder and bile ducts: Normal. No calcified stones. No ductal dilation. Pancreas: Normal. No ductal dilation. Spleen: Normal. No splenomegaly. Adrenal glands: Normal. No mass. Kidneys and ureters: Normal. No hydronephrosis. Stomach and bowel: Unremarkable. No obstruction. No mucosal thickening. Appendix: No evidence of appendicitis. Intraperitoneal space: Normal. No significant fluid collection. Vasculature: Unremarkable. No abdominal aortic aneurysm. Lymph nodes: Unremarkable. No enlarged lymph nodes. Urinary bladder: Unremarkable as visualized. Reproductive: Prominent right adnexal lesions present measuring up to 2.8 cm. Uterus is not well seen. Bones/joints: Unremarkable. No acute fracture. Soft tissues: There is a fat-containing umbilical hernia. IMPRESSION: 1. Prominent right adnexal lesions present measuring up to 2.8 cm. Follow-up pelvic ultrasound may be of further benefit, as clinically warranted. 2. No evidence of appendicitis. Thank you for allowing us to participate in the care of your patient. Dictated and Authenticated by: Tarik Winn DO 06/04/2020 8:04 PM Central Time ([place] & [place]) [facility]
== END 2020-06-04 20:05 | disposition home or self-care (01) ==
LOC: JD.ED 15:53
DX: N83.201 Unspecified ovarian cyst, right side (principal); J45.909 Unspecified asthma, uncomplicated; E66.9 Obesity, unspecified; F17.210 Nicotine dependence, cigarettes, uncomplicated; Z68.32 Body mass index [BMI] 32.0-32.9, adult; Z88.5 Allergy status to narcotic agent
CPT/HCPCS: 36415; 74177; 80053; 81001; 83690; 84703; 85025; 96374; 96375; 96376; 99284; J1170; J2405; J7030; Q9963; Q9967

== ENCOUNTER 2020-06-12 08:45 | Day surgery (SDC) | payer BC ==
[~2020-06-12 08:45] MED LIST: Dexamethasone 4 MG/ML 5 ML MDV ONE; Lactated Ringers 1,000 ML IV SCH; Lidocaine 1% 4 ML ONE; Lidocaine 1%/Sod Bicarbonate in NS 8.4% 1 ML Syringe IDERM PRN; Midazolam 1 MG/ML 2 ML SDV ONE; Ondansetron 4 MG/2 ML SDV ONE; Propofol 200 MG/20 ML SDV ONE; Rocuronium 50 MG/5 ML Vial ONE; Sodium Chloride 0.9% 10 ML Syringe FLUSH PRN; fentaNYL 250 MCG/5 ML SDV ONE
[2020-06-12] MEDS ORDERED: Bupivacaine 0.5% 30 ML SDV ONE (09:54)
[2020-06-12] MEDS ORDERED: Albuterol 0.083% 2.5 MG/3 ML Neb Soln NEB ONE (10:30)
[2020-06-12] MEDS ORDERED: HYDROmorphone 0.5 MG/0.5 ML Syringe ONE (10:34)
[2020-06-12] MEDS ORDERED: Ketamine 500 mg/10 ML MDV ONE (10:39)
[2020-06-12] MEDS ORDERED: fentaNYL 100 MCG/2 ML SDV IVPUSH PRN (10:50)
[2020-06-12] MEDS ORDERED: Ondansetron 4 MG/2 ML SDV IVPUSH PRN (10:50)
--- NOTE | 2020-06-12 10:50 | PCM.PREANE ---
Preanesthetic Assessment - Procedure Proposed Procedure: Diagnostic Laparoscopy - Anesthesia/Transfusion/Family Hx Anesthesia History: Prior Anesthesia Without Reaction Family History of Anesthesia Reaction: No - Review of Systems General: No Symptoms Pulmonary: No Symptoms (Smoker 1/4 ppd. Asthma many years ago, Inhaler use 10 years ago. ) Cardiovascular: No Symptoms Gastrointestinal: Other (GERD, controlled with current medications. ) Neurological: No Symptoms Other: Reports: None (Obesity BMI 33, hoarse voice. ) - Physical Assessment NPO Status Date: 06/11/20 NPO Status Time: 23:00 Vital Signs: Last Vital Signs Temp 36.7 C 06/12/20 08:50 Pulse 73 06/12/20 08:50 Resp 16 06/12/20 08:50 BP 117/69 06/12/20 08:50 Pulse Ox 95 06/12/20 08:50 Height: 1.7 m Weight: 95.708 kg ASA Class: 2 Mental Status: Alert & Oriented x3 Airway Class: Mallampati = 2 Dentition: Reports: Broken Tooth/Teeth (Lower boken, secure. ) Thyro-Mental Finger Breadths: 3 Mouth Opening Finger Breadths: 3 ROM/Head Extension: Full Lungs: Clear to Auscultation, Normal Respiratory Effort Cardiovascular: Regular Rate, Regular Rhythm - Lab Values: Laboratory Last Values Urine Color Yellow (Yellow) 06/12/20 08:48 Urine Appearance Clear (Clear) 06/12/20 08:48 Urine pH 6.0 (5.0-8.0) 06/12/20 08:48 Ur Specific Rock > or = 1.030 (1.005-1.030) 06/12/20 08:48 Urine Protein Negative (Negative) 06/12/20 08:48 Urine Glucose (UA) Negative (Negative) 06/12/20 08:48 Urine Ketones Negative (Negative) 06/12/20 08:48 Urine Occult Blood Negative (Negative) 06/12/20 08:48 Urine Nitrite Negative (Negative) 06/12/20 08:48 Urine Bilirubin Negative (Negative) 06/12/20 08:48 Urine Urobilinogen 0.2 (0.2-1.0) 06/12/20 08:48 Ur Leukocyte Esterase Negative (Negative) 06/12/20 08:48 Blood Type A POSITIVE 06/12/20 09:10 Gel Antibody Screen Negative 06/12/20 09:10 - Allergies Allergies/Adverse Reactions: Allergies Allergy/AdvReac Type Severity Reaction Status Date / Time morphine Allergy Rash Verified 06/11/20 13:13 - Anesthesia Plan Pre-Op Medication Ordered: Other (Albuterol Nebulizer Treatment ) - Acknowledgements Anesthesia Type Planned: General Anesthesia Pt an Appropriate Candidate for the Planned Anesthesia: Yes Alternatives and Risks of Anesthesia Discussed w Pt/Guardian: Yes Pt/Guardian Understands and Agrees with Anesthesia Plan: Yes PreAnesthesia Questionnaire HEENT History: Reports: None Cardiovascular History: Reports: Other (See Below) Other Cardiovascular History: Mitral valve prolapse, palpitations, racing heart beat Respiratory History: Reports: Asthma Gastrointestinal History: Reports: GERD Genitourinary History: Reports: Other (See Below) Other Genitourinary History: Cyst on kidney [employer] History: Reports: 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, , Other (See Below) Other OB/BYN History: PALLAVI III with severe dysplasia, endometriosis, PCOS, pelvic pain, exploratory laparotomy Musculoskeletal History: Reports: None Neurological History: Reports: None Psychiatric History: Reports: Anxiety Endocrine/Metabolic History: Reports: Obesity/BMI 30+ Hematologic History: Reports: Anemia Immunologic History: Reports: None Oncologic (Cancer) History: Reports: None Dermatologic History: Reports: None - Infectious Disease History Infectious Disease History: Reports: MRSA, Other (See Below) Other Infectious Disease History: 06/09 has screened negative for mrsa - Past Surgical History Head Surgeries/Procedures: Reports: None HEENT Surgical History: Reports: Oral Surgery Cardiovascular Surgical History: Reports: None Respiratory Surgical History: Reports: None GI Surgical History: Reports: Colonoscopy, EGD Female Surgical History: Reports: Hysterectomy Endocrine Surgical History: Reports: None Neurological Surgical History: Reports: None Musculoskeletal Surgical History: Reports: None Oncologic Surgical History: Reports: None Dermatological Surgical History: Reports: None - SUBSTANCE USE Tobacco Use Status *Q: Current Every Day Tobacco User Recreational Drug Use History: No - HOME MEDS Home Medications: Home Meds Hydrocodone/Acetaminophen [Hydrocodone-Acetamin 5-325 mg] 1 - 2 each PO Q6HR PRN #20 tablet 06/04/20 [Rx] Ferrous Sulfate [Iron] 325 mg PO BID 06/11/20 [History] Omeprazole Magnesium [Prilosec Otc] 20 mg PO DAILY 06/11/20 [History] Ondansetron [Ondansetron ODT] 4 mg PO Q6H PRN 06/11/20 [History] - CURRENT (IN HOUSE) MEDS Current Meds: Current Medications Lactated Ringer's (Ringers, Lactated) 1,000 mls @ 125 mls/hr IV ASDIRECTED ALEX Stop: 06/12/20 23:00 Last Admin: 06/12/20 09:15 Dose: 125 mls/hr Documented by: Lidocaine/Sodium Bicarbonate (Buffered Lidocaine 1% In Ns 8.4%) 0.25 ml IDERM ONETIME PRN PRN Reason: Prior to IV Start Stop: 06/12/20 18:00 Last Admin: 06/12/20 09:14 Dose: 0.25 ml Documented by: Sodium Chloride (Saline Flush) 10 ml FLUSH ASDIRECTED PRN PRN Reason: Keep Vein Open Stop: 06/12/20 18:00 Discontinued Medications Albuterol (Proventil Neb Soln) 2.5 mg NEB ONETIME ONE Stop: 06/12/20 10:31 Last Admin: 06/12/20 09:58 Dose: 2.5 mg Documented by: Bupivacaine HCl (Marcaine 0.5%) Confirm Administered Dose 30 ml .ROUTE .STK-MED ONE Stop: 06/12/20 09:55 Dexamethasone (Dexamethasone) Confirm Administered Dose 20 mg .ROUTE .STK-MED ONE Stop: 06/12/20 08:23 Fentanyl (Sublimaze) Confirm Administered Dose 250 mcg .ROUTE .STK-MED ONE Stop: 06/12/20 08:23 Hydromorphone HCl (Dilaudid) Confirm Administered Dose 0.5 mg .ROUTE .STK-MED ONE Stop: 06/12/20 10:35 Lidocaine HCl (Xylocaine-Mpf 1%) Confirm Administered Dose 4 mls @ as directed .ROUTE .STK-MED ONE Stop: 06/12/20 08:23 Ketamine HCl (Ketalar) Confirm Administered Dose 500 mg .ROUTE .STK-MED ONE Stop: 06/12/20 10:40 Midazolam HCl (Versed 1 Mg/Ml) Confirm Administered Dose 2 mg .ROUTE .STK-MED ONE Stop: 06/12/20 08:23 Ondansetron HCl (Zofran) Confirm Administered Dose 4 mg .ROUTE .STK-MED ONE Stop: 06/12/20 08:23 Propofol (Diprivan 20 Ml) Confirm Administered Dose 200 mg .ROUTE .STK-MED ONE Stop: 06/12/20 08:23 Rocuronium Otto (Zemuron) Confirm Administered Dose 50 mg .ROUTE .STK-MED ONE Stop: 06/12/20 08:23
[2020-06-12] MEDS ORDERED: Lactated Ringers 1,000 ML ONE (10:59)
[2020-06-12] MEDS ORDERED: fentaNYL 100 MCG/2 ML SDV ONE (11:29)
[2020-06-12] MEDS ORDERED: Ketorolac 30 MG/ML SDV ONE (11:29)
--- NOTE | 2020-06-12 12:01 | PCM.POSTAN ---
POST ANESTHESIA ASSESSMENT - MENTAL STATUS Mental Status: Alert, Oriented - VITAL SIGNS Vital Signs: Last Vital Signs Temp 98.1 F 06/12/20 08:50 Pulse 73 06/12/20 08:50 Resp 16 06/12/20 08:50 BP 117/69 06/12/20 08:50 Pulse Ox 95 06/12/20 08:50 1155 130/77 100% 78 16 97.1 - RESPIRATORY Respiratory Status: Respiratory Rate WNL, Airway Patent, O2 Saturation Stable - CARDIOVASCULAR CV Status: Pulse Rate WNL, Blood Pressure Stable - GASTROINTESTINAL GI Status: No Symptoms - PAIN Pain Score: 0 (neck is sore.) - POST OP HYDRATION Hydration Status: Adequate & Stable
--- NOTE | 2020-06-12 12:08 | PCM.OPNOTE ---
- General Post-Op/Procedure Note Date of Surgery/Procedure: 06/12/20 Operative Procedure(s): Laparoscopic bilateral salpingo-oophorectomy and lysis of adhesions Findings: Normal-appearing left ovary. Right ovary with suspected hemorrhagic cyst present measuring approximately 3 cm. Adhesions from the peritoneum to the vaginal cuff and low anterior abdominal wall. Normal-appearing liver and gallbladder. Normal- appearing stomach and intestinal portions that were visualized. Pre Op Diagnosis: Pelvic pain, ovarian cyst, endometriosis Post-Op Diagnosis: Same, right ovarian hemorrhagic cyst Anesthesia Technique: General ET Tube Primary Surgeon: Jeff Rock Anesthesia Provider: Wally Choudhary Mathematics Professor: Pancho De Los Santos Mathematics Professor: Marilynn Ling I (PA student) Reason Mathematics Professor Was Necessary: Patient safety and reduction of morbidity and mortality. Role of Mathematics Professor: Use of laparoscopic instruments for portions of the case and retraction for visualization Pathology: Bilateral ovaries and tubal fragments that may be attached Fluid Replacement, Intraop: 700 Output, Urine Amount: 50 EBL in mLs: 20 Complications: None Condition: Good Free Text/Narrative:: The patient was seen in the preoperative holding area and risks, benefits, indications, and alternatives of the procedure were reviewed with the patient and she desired to proceed with a diagnostic laparoscopy, possible lysis of adhesions, possible biopsies. Consents were reviewed. The patient was taken back to the OR and given general anesthesia with an endotracheal tube which was placed without difficulty. She was placed in dorsal lithotomy position using Yellofin stirrups. She was prepped and draped in normal sterile fashion. A Tucker catheter was placed without difficulty. A sponge stick was placed inside the vagina for manipulation of the vaginal cuff. Attention was then turned to her umbilicus where a previous laparoscopic scar was visualized. This was injected with 0.5% Marcaine and a 5 mm stab incision was made with a scalpel and a Veress needle was then inserted through the incision. The gas was turned on, with an opening pressure of 3 mmHg. Pneumoperitoneum was continued until 15 mmHg pressure. A 5 mm trocar was then inserted under direct visualization through the incision without difficulty. A global view of the abdomen was taken and noted to be overall normal in appearance without significant adhesions to the anterior abdominal wall. Attention was then turned to the right abdomen where a previous laparoscopic port site scar was noted. This was injected with 0.5% Marcaine and a 5 mm stab incision was made with a scalpel. A 5 mm trocar was inserted under direct visualization. Attention was then turned to the left lower quadrant where again a previous laparoscopic port site was seen and this was injected with 0.5% Marcaine and a stab incision was made with a scalpel. A 5 mm trocar was inserted under direct visualization. The pelvis was then explored and noted to have adhesions from the omentum and intestines to the vaginal cuff and around the bladder. There was not significant scar tissue noted in the entirety of the abdomen. A global view of the abdomen was taken and there was normal-appearing liver, gallbladder, stomach and visualized portions of the intestines. The right ovary was then able to be grasped using a grasper and an Enseal vessel sealing device was used to transect the IP ligament. Hemostasis was noted. The ovary was placed in the pelvis to be retrieved later in the case. Attention was then turned to the left side of the pelvis where the left ovary was visualized and grasped with a grasper. The IP ligament was then clamped, cauterized and incised using the Enseal vessel sealing device. Hemostasis was noted at this time. Attention was then turned to the suprapubic area and the skin was injected with local anesthetic. A skin incision was made using a scalpel. A 12 mm trocar was then inserted under direct visualization with laparoscope. An Endo Catch bag was inserted and the ovaries were placed inside of the Endo Catch bag. The Endo Catch bag was removed with extension of the fascia using a small incision with West scissors. The Endo Catch bag and ovaries were able to be removed without difficulty. Attention was then turned to the pelvis where the omentum and intestines had adhesions to the vaginal cuff and bladder. These were taken down with blunt force traction with 1 area that was cauterized and cut using the Enseal vessel sealing device. Hemostasis was noted at the end of the lysis of adhesions. There was only a small amount of adhesions that were densely adhered to the right side of the pelvic sidewall that were felt to be unsafe to take down at this time. The IP ligament cautery sites were further investigated and there was a small amount of bleeding from the inferior portion of the right IP ligament site. This was cauterized and hemostasis was achieved. The abdomen was then further explored and felt to be overall normal and the case was completed at this time. A Cy-Naeem closure device was placed into the suprapubic port site and suture was passed using a needle passer with 2 sutures used to close the fascia. The fascia was noted to be pneumostatic and no separation noted. The gas was then evacuated from the peritoneum and trocars removed. These were closed using 4-0 Monocryl suture and Dermabond. The case was completed at this time and all instruments were removed. The Tucker catheter was discontinued at this time. The sponge stick was removed from the vagina. The patient was awoken from general anesthesia and taken to the PACU for recovery in stable condition. She will be discharged to home once she is able to meet all postoperative milestones including tolerating small amount of oral intake and liquids, ambulate without difficulty, her pain controlled with oral medications and able to void without difficulty. She will follow-up in the clinic in 2 weeks or earlier as needed. Sponge, lap, needle, and instrument counts were correct x 2. Review of images from the case IMG 001: View of the pelvis and anterior pelvic wall with adhesions of the omentum and intestines to the vaginal cuff and bladder. IMG 002: Right ovary with suspected hemorrhagic cyst and otherwise normal-appearing ovary. IMG 003: Right upper quadrant of the abdomen with liver edge and gallbladder grossly normal in appearance. IMG 004: Left upper quadrant of the abdomen with normal-appearing liver and visualized portion of the stomach IMG 005: Right lower quadrant port site after removal of the trocar with hemostasis noted IMG 006: Left lower quadrant port site after removal of the trocar with hemostasis noted.
[2020-06-12] MEDS ORDERED: Acetaminophen/oxyCODONE 325-5 MG Tab PO PRN (12:39)
--- NOTE | 2020-06-12 14:00 | PCM48HPAN ---
Post Anesthesia Note - EVALUATION WITHIN 48HRS OF ANESTHETIC Vital Signs in Normal Range: Yes Patient Participated in Evaluation: Yes Respiratory Function Stable: Yes Airway Patent: Yes Cardiovascular Function Stable: Yes Hydration Status Stable: Yes Pain Control Satisfactory: Yes Nausea and Vomiting Control Satisfactory: Yes Mental Status Recovered: Yes Vital Signs: Last Vital Signs Temp 36.4 C 06/12/20 13:00 Pulse 77 06/12/20 13:00 Resp 17 06/12/20 13:00 BP 115/76 06/12/20 13:00 Pulse Ox 100 06/12/20 13:00
== END 2020-06-12 14:35 | disposition home or self-care (01) ==
LOC: JD.SDS 08:45
PROVIDERS: ATTEND Obstetrics & Gynecology
DX: N83.12 Corpus luteum cyst of left ovary (principal); N83.02 Follicular cyst of left ovary; N83.01 Follicular cyst of right ovary; N83.11 Corpus luteum cyst of right ovary; F41.9 Anxiety disorder, unspecified; F17.210 Nicotine dependence, cigarettes, uncomplicated; Z88.5 Allergy status to narcotic agent; Z98.890 Other specified postprocedural states
CPT/HCPCS: 36415; 58661; 81003; 86850; 86900; 86901; 94640; A9270; J1100; J1170; J1885; J2001; J2250; J2405; J2704; J2710; J3010; J3490; J7120; 00840

== ENCOUNTER 2020-06-23 17:34 | Emergency (ER) | payer BC ==
[2020-06-23] MEDS ORDERED: FLU VACC QS2020-21(6MOS UP)/PF 60 MCG/0.5 ML SYRINGE IM ONE ×2 (18:30→20:17)
--- NOTE | 2020-06-23 19:23 | EDM.PDOC ---
ED HPI GENERAL MEDICAL PROBLEM - General Chief Complaint: Lower Extremity Injury/Pain Stated Complaint: L LEG PAIN/RED/SWOLLEN Time Seen by Provider: 06/23/20 19:21 Source of Information: Reports: Patient, RN Notes Reviewed - History of Present Illness INITIAL COMMENTS - FREE TEXT/NARRATIVE: 35 yr old female comes in with severe L pelvic pain. Started yesterday, worse this afternoon and evening, now severe. No fever, chills, vomiiting. Pain radiates to L thigh. Pt very anxious. Worried about clots, states they run in her family. No chest pain or difficulty breathing. Left Upper Thigh Pain Score (Numeric/FACES): 8 - Related Data Allergies Allergy/AdvReac Type Severity Reaction Status Date / Time morphine Allergy Rash Verified 06/23/20 18:01 Home Meds: Home Meds Ferrous Sulfate [Iron] 325 mg PO BID 06/11/20 [History] Omeprazole Magnesium [Prilosec Otc] 20 mg PO DAILY 06/11/20 [History] Docusate Sodium [Colace] 100 mg PO BID #60 capsule 06/12/20 [Rx] Ibuprofen 600 mg PO Q6H PRN #60 tablet 06/12/20 [Rx] Ondansetron [Ondansetron ODT] 4 mg PO Q6H PRN #30 tab 06/12/20 [Rx] Acetaminophen/HYDROcodone [[place] 325-5 MG] 1 tab PO Q6H PRN #14 tablet 06/23/20 [Rx] Past Medical History HEENT History: Reports: Impaired Vision Other HEENT History: wears eyeglasses. Deviated septum. Cardiovascular History: Reports: Other (See Below) Other Cardiovascular History: Mitral valve prolapse, palpitations, racing heart beat Respiratory History: Reports: Asthma, Bronchitis, Recurrent Gastrointestinal History: Reports: GERD Genitourinary History: Reports: UTI, Recurrent, Other (See Below) Other Genitourinary History: Cyst on kidney CHEMIST INTERN History: Reports: 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, , Other (See Below) Other CHEMIST INTERN History: PALLAVI III with severe dysplasia, endometriosis, PCOS, pelvic pain, exploratory laparotomy Musculoskeletal History: Reports: Fracture Neurological History: Reports: None Psychiatric History: Reports: Anxiety Endocrine/Metabolic History: Reports: Obesity/BMI 30+ Hematologic History: Reports: Anemia Immunologic History: Reports: None Oncologic (Cancer) History: Reports: None Dermatologic History: Reports: None - Infectious Disease History Infectious Disease History: 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 GI Surgical History: Reports: Colonoscopy, EGD Female Surgical History: Reports: Hysterectomy Social & Family History - Family History Family Medical History: No Pertinent Family History Cardiac: Reports: Heart Valve Replacement, Hypertension Neurological: Reports: CVA Endocrine/Metabolic: Reports: Diabetes, type II - Tobacco Use Tobacco Use Status *Q: Current Every Day Tobacco User Years of Tobacco use: 12 Packs/Tins Daily: 0.2 Second Hand Smoke Exposure: Yes - Caffeine Use Caffeine Use: Reports: Energy Drinks - Recreational Drug Use Recreational Drug Use: No Review of Systems - Review of Systems Review Of Systems: See Below Constitutional: Denies: Chills, Diaphoresis, Fever Respiratory: Denies: Shortness of Breath, Pleuritic Chest Pain Cardiovascular: Denies: Chest Pain GI/Abdominal: Reports: Abdominal Pain, Nausea. Denies: Diarrhea, Vomiting Genitourinary: Reports: No Symptoms Musculoskeletal: Reports: Leg Pain Skin: Reports: No Symptoms Neurological: Reports: Numbness (has had some mild numbness L proximal thigh) ED EXAM, GENERAL - Physical Exam Exam: See Below General Appearance: Alert, Anxious, Moderate Distress Head: Atraumatic Neck: Supple Respiratory/Chest: No Respiratory Distress, Lungs Clear, Normal Breath Sounds. No: Rhonchi, Wheezing Cardiovascular: Regular Rate, Rhythm GI/Abdominal: Soft, Tender (Mild tenderness L low abd and pelvis, no mass palpable, no visible swelling) Back Exam: No: CVA Tenderness (L), CVA Tenderness (R) Extremities: Normal Inspection. No: Pedal Edema, Leg Pain, Increased Warmth, Redness Neurological: Alert, Oriented, No Motor/Sensory Deficits Skin Exam: Warm, Dry, Normal Color Course - Vital Signs Last Recorded V/S: Last Vital Signs Temp 98.3 F 06/23/20 17:45 Pulse 95 06/23/20 17:45 Resp 20 06/23/20 17:45 BP Pulse Ox 100 06/23/20 17:45 - Orders/Labs/Meds Orders: Active Orders 24 hr Category Date Time Status Transvaginal Non OB [US] Stat Exams 06/23/20 20:09 Taken VL Duplex Lwr Ext Veins Ltd Lt [US] Stat Exams 06/23/20 20:10 Taken Peripheral IV Insertion Adult [OM.PC] Stat Oth 06/23/20 20:07 Ordered Labs: Laboratory Tests 06/23/20 06/23/20 06/23/20 Range/Units 20:20 20:20 20:20 WBC 13.07 H (3.98-10.04) K/mm3 RBC 4.78 (3.98-5.22) M/mm3 Hgb 14.4 (11.2-15.7) gm/dl Hct 43.6 (34.1-44.9) % MCV 91.2 (79.4-94.8) fl MCH 30.1 (25.6-32.2) pg MCHC 33.0 (32.2-35.5) g/dl RDW Std Deviation 43.5 (36.4-46.3) fL Plt Count 291 (182-369) K/mm3 MPV 9.2 L (9.4-12.3) fl Neut % (Auto) 69.6 (34.0-71.1) % Lymph % (Auto) 16.5 L (19.3-51.7) % [place] % (Auto) 6.3 (4.7-12.5) % Eos % (Auto) 6.7 H (0.7-5.8) Baso % (Auto) 0.3 (0.1-1.2) % Neut # (Auto) 9.09 H (1.56-6.13) K/mm3 Lymph # (Auto) 2.16 (1.18-3.74) K/mm3 [place] # (Auto) 0.82 H (0.24-0.36) K/mm3 Eos # (Auto) 0.88 H (0.04-0.36) K/mm3 Baso # (Auto) 0.04 (0.01-0.08) K/mm3 Manual Slide Review Normal smear D-Dimer, Quantitative 0.29 (0.19-0.50) mg/L C-Reactive Protein 1.1 H* (<1.0) mg/dL Urine Color (Yellow) Urine Appearance (Clear) Urine pH (5.0-8.0) Ur Specific [place] (1.005-1.030) Urine Protein (Negative) Urine Glucose (UA) (Negative) Urine Ketones (Negative) Urine Occult Blood (Negative) Urine Nitrite (Negative) Urine Bilirubin (Negative) Urine Urobilinogen (0.2-1.0) Ur Leukocyte Esterase (Negative) Urine RBC (0-5) /hpf Urine WBC (0-5) /hpf Ur Squamous Epith Cells (0-5) /hpf Urine Bacteria (FEW) /hpf Urine Mucus (FEW) /hpf 06/23/20 Range/Units 21:06 WBC (3.98-10.04) K/mm3 RBC (3.98-5.22) M/mm3 Hgb (11.2-15.7) gm/dl Hct (34.1-44.9) % MCV (79.4-94.8) fl MCH (25.6-32.2) pg MCHC (32.2-35.5) g/dl RDW Std Deviation (36.4-46.3) fL Plt Count (182-369) K/mm3 MPV (9.4-12.3) fl Neut % (Auto) (34.0-71.1) % Lymph % (Auto) (19.3-51.7) % [place] % (Auto) (4.7-12.5) % Eos % (Auto) (0.7-5.8) Baso % (Auto) (0.1-1.2) % Neut # (Auto) (1.56-6.13) K/mm3 Lymph # (Auto) (1.18-3.74) K/mm3 [place] # (Auto) (0.24-0.36) K/mm3 Eos # (Auto) (0.04-0.36) K/mm3 Baso # (Auto) (0.01-0.08) K/mm3 Manual Slide Review D-Dimer, Quantitative (0.19-0.50) mg/L C-Reactive Protein (<1.0) mg/dL Urine Color Yellow (Yellow) Urine Appearance Clear (Clear) Urine pH 5.5 (5.0-8.0) Ur Specific [place] > or = 1.030 (1.005-1.030) Urine Protein Negative (Negative) Urine Glucose (UA) Negative (Negative) Urine Ketones Negative (Negative) Urine Occult Blood Trace-lysed H (Negative) Urine Nitrite Negative (Negative) Urine Bilirubin Negative (Negative) Urine Urobilinogen 0.2 (0.2-1.0) Ur Leukocyte Esterase Negative (Negative) Urine RBC 0-5 (0-5) /hpf Urine WBC 0-5 (0-5) /hpf Ur Squamous Epith Cells 5-10 H (0-5) /hpf Urine Bacteria Few (FEW) /hpf Urine Mucus Not seen (FEW) /hpf Meds: Medications Discontinued Medications Generic Name Dose Route Start Last Admin Trade Name Freq PRN Reason Stop Dose Admin Hydromorphone HCl 0.5 mg 06/23/20 20:07 06/23/20 20:17 Dilaudid IVPUSH 06/23/20 20:08 0.5 mg ONETIME ONE Administration Sodium Chloride 1,000 mls @ 999 mls/hr 06/23/20 20:15 06/23/20 20:17 Normal Saline IV 999 mls/hr ONETIME ALEX Administration Influenza Virus Vaccine 1 each 06/23/20 18:15 Pharmacy To Dose - Influenza Vaccine IM 06/23/20 18:16 ONETIME ONE Influenza Virus Vaccine 60 mcg 06/23/20 18:30 06/23/20 21:00 Fluzone Quad Syringe IM 06/23/20 18:31 60 mcg .ONCE ONE Administration Influenza Virus Vaccine Confirm 06/23/20 20:17 Fluzone Quad Syringe Administered 06/23/20 20:18 Dose 60 mcg IM .STK-MED ONE Ketorolac Tromethamine 30 mg 06/23/20 22:10 06/23/20 22:23 Toradol IVPUSH 06/23/20 22:11 30 mg ONETIME ONE Administration Sodium Chloride 10 ml 06/23/20 20:07 06/23/20 20:17 Saline Flush FLUSH 10 ml ASDIRECTED PRN Administration Keep Vein Open - Re-Assessments/Exams Free Text/Narrative Re-Assessment/Exam: 06/23/20 23:17 WBC OK, mildly elevated at around 13,000. CRP nl. D Dimer nl, Ua nl. US of pelvis and LLE no acute findings. Good relief of pain from dilaudid 0.5 mg IV. Departure - Departure Time of Disposition: 22:11 Disposition: Home, Self-Care 01 Condition: Fair Clinical Impression: Pelvic pain, Leg pain, left - Discharge Information Prescriptions: Acetaminophen/HYDROcodone [[place] 325-5 MG] 1 tab PO Q6H PRN #14 tablet PRN Reason: Pain Instructions: Pelvic Pain, Female, [id number] Referrals: Tammy Momin PA-C [Primary Care Provider] - Forms: ED Department Discharge Additional Instructions: Alternate ice and heat as needed. Alternate tylenol and ibuprofen for mild to moderate pain or hydrocodone if needed for severe pain. Do not take tylenol and hydrocodone at the same time. Do not drive when taking hydrocodone. Prescription has been sent electronically to [facility] up at the [employer] store. Follow up clinic as needed if symptoms not resolving as expected. Sepsis Event Note (ED) - Evaluation Sepsis Screening Result: No Definite Risk - Focused Exam Vital Signs: Vital Signs Temp Pulse Resp Pulse Ox 06/23/20 17:45 98.3 F 95 20 100 - My Orders Last 24 Hours: My Active Orders 06/23/20 20:07 Peripheral IV Insertion Adult [OM.PC] Stat 06/23/20 20:09 Transvaginal Non OB [US] Stat 06/23/20 20:10 VL Duplex Lwr Ext Veins Ltd Lt [US] Stat - Assessment/Plan Last 24 Hours: My Active Orders 06/23/20 20:07 Peripheral IV Insertion Adult [OM.PC] Stat 06/23/20 20:09 Transvaginal Non OB [US] Stat 06/23/20 20:10 VL Duplex Lwr Ext Veins Ltd Lt [US] Stat
[2020-06-23] MEDS ORDERED: HYDROmorphone 0.5 MG/0.5 ML Syringe IVPUSH ONE (20:07)
[2020-06-23] MEDS ORDERED: Sodium Chloride 0.9% 10 ML Syringe FLUSH PRN (20:07)
[2020-06-23] MEDS ORDERED: Sodium Chloride 0.9% 1,000 ML IV SCH (20:15)
[2020-06-23] MEDS ORDERED: Ketorolac 30 MG/ML SDV IVPUSH ONE (22:10)
--- NOTE | 2020-06-24 08:26 | US ---
Pelvic ultrasound: Multiple real-time images of the pelvis were obtained transabdominally and transvaginally. Comparison: Prior CT abdomen and pelvis study of 04/16/20. Ovaries as well as uterus are not seen. No free fluid or other discrete mass is appreciated. Impression: 1. Prior hysterectomy and oophorectomy. 2. No additional abnormality is appreciated. Diagnostic code #2 I agree with preliminary report from [facility], finalized on 06/23/20, 10:50 PM Central Daylight Time
--- NOTE | 2020-06-24 08:29 | US ---
Left lower extremity deep venous ultrasound: Duplex and color Doppler evaluation was obtained of the left common femoral, proximal greater saphenous, superficial femoral, popliteal, posterior tibial and peroneal veins. Right common femoral vein was also evaluated. Findings: Soft tissues: Hypoechoic area is seen within the right groin believed to represent slightly prominent lymph node which is incidental. Deep veins: Normal phasic flow, augmentation and compression is seen within the veins of the left lower extremity and within the common femoral vein on the right side. Impression: 1. No evidence of deep venous thrombosis within the left lower extremity or within the right common femoral vein. Diagnostic code #2 I agree with preliminary report from [facility], finalized on 06/23/20, 10:48 PM Central Daylight Time
== END 2020-06-23 22:30 | disposition home or self-care (01) ==
LOC: JD.ED 17:34 → SUPCPDRO 17:34 → JD.ED 22:30
DX: R10.2 Pelvic and perineal pain (principal); M79.605 Pain in left leg; J45.909 Unspecified asthma, uncomplicated; K21.9 Gastro-esophageal reflux disease without esophagitis; F17.210 Nicotine dependence, cigarettes, uncomplicated; E66.9 Obesity, unspecified; Z68.33 Body mass index [BMI] 33.0-33.9, adult; Z23 Encounter for immunization; Z88.5 Allergy status to narcotic agent; Z79.899 Other long term (current) drug therapy
CPT/HCPCS: 36415; 76830; 81001; 85025; 85379; 86140; 90471; 90686; 93971; 96374; 96375; 99284; J1170; J1885; J7030; G0008

== ENCOUNTER 2020-07-26 19:22 | Emergency (ER) | payer BC ==
--- NOTE | 2020-07-26 19:53 | EDM.PDOC ---
ED HPI GENERAL MEDICAL PROBLEM - General Chief Complaint: Respiratory Problem Stated Complaint: SOB, LIGHT HEADED, HEART PALPATATIONS Time Seen by Provider: 07/26/20 19:47 - History of Present Illness INITIAL COMMENTS - FREE TEXT/NARRATIVE: 35-year-old female presents the emergency room with palpitations This is been going on for last several weeks. The patient has had episodes like this in the past and then they stopped for quite a long time they have been difficult to actually diagnose and catch on the monitor because she can go months without them. Upon arrival here she is in a sinus rhythm rate about 100 bpm she says it goes up quite a bit higher at times. She does have a history of mitral valve prolapse. No significant chest pain with this but it does make it difficult for her to catch her breath. Upper Abdominal Pain Score (Numeric/FACES): 8 - Related Data Allergies Allergy/AdvReac Type Severity Reaction Status Date / Time morphine Allergy Rash Verified 07/26/20 19:32 Home Meds: Home Meds Ferrous Sulfate [Iron] 325 mg PO BID 06/11/20 [History] Past Medical History HEENT History: Reports: Impaired Vision Other HEENT History: wears eyeglasses. Deviated septum. Cardiovascular History: Reports: Other (See Below) Other Cardiovascular History: Mitral valve prolapse, palpitations, racing heart beat Respiratory History: Reports: Asthma, Bronchitis, Recurrent Gastrointestinal History: Reports: GERD Genitourinary History: Reports: UTI, Recurrent, Other (See Below) Other Genitourinary History: Cyst on kidney EP SPECIALIST History: Reports: 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, , Other (See Below) Other EP SPECIALIST History: PALLAVI III with severe dysplasia, endometriosis, PCOS, pelvic pain, exploratory laparotomy Musculoskeletal History: Reports: Fracture Neurological History: Reports: None Psychiatric History: Reports: Anxiety Endocrine/Metabolic History: Reports: Obesity/BMI 30+ Hematologic History: Reports: Anemia Immunologic History: Reports: None Oncologic (Cancer) History: Reports: None Dermatologic History: Reports: None - Infectious Disease History Infectious Disease History: Reports: Influenza, MRSA, Other (See Below) Other Infectious Disease History: 06/09 has screened negative for mrsa - Past Surgical History Head Surgeries/Procedures: Reports: None HEENT Surgical History: Reports: Oral Surgery Other HEENT Surgeries/Procedures: wisdom teeth removed. Cardiovascular Surgical History: Reports: None Respiratory Surgical History: Reports: None GI Surgical History: Reports: Colonoscopy, EGD Female Surgical History: Reports: Hysterectomy Endocrine Surgical History: Reports: None Neurological Surgical History: Reports: None Musculoskeletal Surgical History: Reports: None Oncologic Surgical History: Reports: None Dermatological Surgical History: Reports: None Social & Family History - Family History Family Medical History: No Pertinent Family History Cardiac: Reports: Heart Valve Replacement, Hypertension Neurological: Reports: CVA Endocrine/Metabolic: Reports: Diabetes, type II - Tobacco Use Tobacco Use Status *Q: Current Every Day Tobacco User Years of Tobacco use: 10 Packs/Tins Daily: 0.5 - Caffeine Use Caffeine Use: Reports: Energy Drinks - Recreational Drug Use Recreational Drug Use: No ED ROS GENERAL - Review of Systems Review Of Systems: See Below Constitutional: Reports: No Symptoms HEENT: Reports: No Symptoms Respiratory: Reports: Shortness of Breath Cardiovascular: Reports: Palpitations. Denies: Chest Pain Endocrine: Reports: No Symptoms GI/Abdominal: Reports: No Symptoms ED EXAM, GENERAL - Physical Exam Exam: See Below Exam Limited By: No Limitations Course - Vital Signs Last Recorded V/S: Last Vital Signs Temp 37.1 C 07/26/20 19:30 Pulse 112 H 07/26/20 19:30 Resp 16 07/26/20 19:30 BP 149/108 H 07/26/20 19:30 Pulse Ox 100 07/26/20 19:30 - Orders/Labs/Meds Orders: Active Orders 24 hr Category Date Time Status EKG 12 Lead [EKG Documentation Completion] [RC] STAT Care 07/26/20 19:32 Active Chest 1V Frontal [CR] Stat Exams 07/26/20 20:17 Taken Labs: Laboratory Tests 07/26/20 07/26/20 07/26/20 Range/Units 20:07 20:07 20:07 WBC 10.62 H (3.98-10.04) K/mm3 RBC 4.63 (3.98-5.22) M/mm3 Hgb 13.8 (11.2-15.7) gm/dl Hct 42.2 (34.1-44.9) % MCV 91.1 (79.4-94.8) fl MCH 29.8 (25.6-32.2) pg MCHC 32.7 (32.2-35.5) g/dl RDW Std Deviation 42.4 (36.4-46.3) fL Plt Count 287 (182-369) K/mm3 MPV 9.8 (9.4-12.3) fl Neut % (Auto) 71.7 H (34.0-71.1) % Lymph % (Auto) 17.7 L (19.3-51.7) % [place] % (Auto) 5.9 (4.7-12.5) % Eos % (Auto) 4.1 (0.7-5.8) Baso % (Auto) 0.2 (0.1-1.2) % Neut # (Auto) 7.61 H (1.56-6.13) K/mm3 Lymph # (Auto) 1.88 (1.18-3.74) K/mm3 [place] # (Auto) 0.63 H (0.24-0.36) K/mm3 Eos # (Auto) 0.44 H (0.04-0.36) K/mm3 Baso # (Auto) 0.02 (0.01-0.08) K/mm3 Manual Slide Review Normal smear D-Dimer, Quantitative < 0.19 L (0.19-0.50) mg/L Sodium 140 (136-145) mEq/L Potassium 3.6 (3.5-5.1) mEq/L Chloride 106 (98-107) mEq/L Carbon Dioxide 26 (21-32) mEq/L Anion Gap 11.6 (5-15) BUN 10 (7-18) mg/dL Creatinine 0.8 (0.55-1.02) mg/dL Est Cr Clr Drug Dosing 100.90 mL/min Estimated GFR (MDRD) > 60 (>60) mL/min BUN/Creatinine Ratio 12.5 L (14-18) Glucose 97 (74-106) mg/dL Calcium 9.1 (8.5-10.1) mg/dL Magnesium 2.1 (1.8-2.4) mg/dl Total Bilirubin 0.2 (0.2-1.0) mg/dL AST 11 L (15-37) U/L ALT 21 (14-59) U/L Alkaline Phosphatase 86 (46-116) U/L Total Protein 7.7 (6.4-8.2) g/dl Albumin 3.9 (3.4-5.0) g/dl Globulin 3.8 gm/dL Albumin/Globulin Ratio 1.0 (1-2) TSH 3rd Generation 1.159 (0.358-3.74) uIU/mL Meds: Medications Discontinued Medications Generic Name Dose Route Start Last Admin Trade Name [place] PRN Reason Stop Dose Admin Lorazepam 0.5 mg 07/26/20 19:55 07/26/20 20:00 Ativan PO 07/26/20 19:56 0.5 mg ONETIME ONE Administration Potassium Chloride 40 meq 07/26/20 21:17 Klor-Con M20 PO 07/26/20 21:18 ONETIME ONE - Re-Assessments/Exams Free Text/Narrative Re-Assessment/Exam: 07/26/20 21:30 Potassium is a little low remaining labs look good chest x-ray is unrevealing. Discussed outpatient echocardiogram we will give her a single dose of potassium 40 mEq now and start her on Mag-Ox 400 mg 1 daily. She will discuss this with her primary healthcare provider. Departure - Departure Time of Disposition: 21:31 Disposition: Home, Self-Care 01 Clinical Impression: Sinus tachycardia - Discharge Information Referrals: PCP,None [Primary Care Provider] - Forms: ED Department Discharge Additional Instructions: Return to the emergency room with any questions problems or worsening symptoms. Establish with a local healthcare provider. The phone number to the hospital clinic is [phone]. Make an appointment discuss getting a outpatient heart monitor that lasts longer than a couple of days.. Also start magnesium oxide 400 mg 1 tablet a day. Sepsis Event Note (ED) - Evaluation Sepsis Screening Result: No Definite Risk - Focused Exam Vital Signs: Vital Signs Temp Pulse Resp BP Pulse Ox 07/26/20 19:30 37.1 C 112 H 16 149/108 H 100 - My Orders Last 24 Hours: My Active Orders 07/26/20 19:32 EKG 12 Lead [EKG Documentation Completion] [RC] STAT 07/26/20 20:17 Chest 1V Frontal [CR] Stat - Assessment/Plan Last 24 Hours: My Active Orders 07/26/20 19:32 EKG 12 Lead [EKG Documentation Completion] [RC] STAT 07/26/20 20:17 Chest 1V Frontal [CR] Stat
[2020-07-26] MEDS ORDERED: LORazepam 0.5 MG Tab PO ONE (19:55)
[2020-07-26] MEDS ORDERED: Potassium Chloride 20 MEQ Tab.ER PO ONE (21:17)
--- NOTE | 2020-07-27 08:32 | CR ---
Chest: Portable view of the chest was obtained. Comparison: Prior chest x-ray of 03/28/18. Heart size and mediastinum appear normal. Nodular density is noted within the left mid chest with slight surrounding parenchymal opacity. Lungs otherwise are clear. Bony structures are grossly intact. Impression: 1. Small nodular density within the left midchest with mild surrounding parenchymal change. Difficult to exclude atelectasis or small area of pneumonia. If patient has no symptoms of pneumonia, recommend chest CT to further evaluate. 2. Nothing acute is otherwise seen. Diagnostic code #9
== END 2020-07-26 21:42 | disposition home or self-care (01) ==
LOC: JD.ED 19:22
DX: R00.0 Tachycardia, unspecified (principal); J45.909 Unspecified asthma, uncomplicated; E66.9 Obesity, unspecified; Z68.32 Body mass index [BMI] 32.0-32.9, adult; Z88.5 Allergy status to narcotic agent
CPT/HCPCS: 36415; 71045; 80053; 83735; 84443; 85025; 85379; 93005; 99285; A9270

== ENCOUNTER 2021-06-27 22:27 | Emergency (ER) | payer BC, OTHER ==
[2021-06-27] MEDS ORDERED: Ibuprofen 600 MG Tab PO ONE (23:31)
[2021-06-27] MEDS ORDERED: Lidocaine 2% Jelly 5 ML Tube TOP ONE (23:31)
--- NOTE | 2021-06-27 23:32 | EDM.PDOC ---
ED HPI GENERAL MEDICAL PROBLEM - General Chief Complaint: Genitourinary Problem Stated Complaint: GROIN PAIN/ANUS PAIN Time Seen by Provider: 06/27/21 23:15 Source of Information: Reports: Patient History Limitations: Reports: No Limitations - History of Present Illness INITIAL COMMENTS - FREE TEXT/NARRATIVE: Patient is a 36-year-old female with a history of obesity and hemorrhoids presenting with chief complaint of painful hemorrhoids. Patient states the pain started yesterday. She tried using natural remedies with little relief. She denies any associated fevers, chills, diarrhea. She does report some associated blood. Patient reports hemorrhoids longstanding since childbirth. Otherwise, patient does not use any other treatments or perform any other interventions. Anus Pain Score (Numeric/FACES): 10 - Related Data Allergies Allergy/AdvReac Type Severity Reaction Status Date / Time morphine Allergy Rash Verified 06/27/21 22:44 Home Meds: Home Meds Ferrous Sulfate [Iron] 325 mg PO BID 06/11/20 [History] Lidocaine/Phenyl/Glycer/Petrol [Preparation H Rapid-Lido Cream] 28 gm TP BID 10 Days #28 cream..g. 06/27/21 [Rx] Nitroglycerin [Rectiv] 1 inch TD BID 10 Days #30 oint...g. 06/27/21 [Rx] estradioL [Park] 1 patch TOP ASDIRECTED 06/27/21 [History] Past Medical History HEENT History: Reports: Impaired Vision Other HEENT History: wears eyeglasses. Deviated septum. Cardiovascular History: Reports: Other (See Below) Other Cardiovascular History: Mitral valve prolapse, palpitations, racing heart beat Respiratory History: Reports: Asthma, Bronchitis, Recurrent Gastrointestinal History: Reports: GERD Genitourinary History: Reports: UTI, Recurrent, Other (See Below) Other Genitourinary History: Cyst on kidney PRINCIPAL CLERK History: Reports: 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, , Other (See Below) Other PRINCIPAL CLERK History: PALLAVI III with severe dysplasia, endometriosis, PCOS, pelvic pain, exploratory laparotomy Musculoskeletal History: Reports: Fracture, Other (See Below) Other Musculoskeletal History: right arm fracture, right rotator cuff tear Neurological History: Reports: None Psychiatric History: Reports: Anxiety Endocrine/Metabolic History: Reports: Obesity/BMI 30+ Hematologic History: Reports: Anemia Immunologic History: Reports: None Oncologic (Cancer) History: Reports: None Dermatologic History: Reports: None - Infectious Disease History Infectious Disease History: Reports: Influenza, MRSA, Novel Coronavirus, Other (See Below) Other Infectious Disease History: 06/09 has screened negative for mrsa - Past Surgical History Head Surgeries/Procedures: Reports: None HEENT Surgical History: Reports: Oral Surgery Other HEENT Surgeries/Procedures: wisdom teeth removed. Cardiovascular Surgical History: Reports: None Respiratory Surgical History: Reports: None GI Surgical History: Reports: Colonoscopy, EGD Female Surgical History: Reports: Hysterectomy Endocrine Surgical History: Reports: None Neurological Surgical History: Reports: None Musculoskeletal Surgical History: Reports: None Oncologic Surgical History: Reports: None Dermatological Surgical History: Reports: None Social & Family History - Family History Family Medical History: No Pertinent Family History Cardiac: Reports: Heart Valve Replacement, Hypertension Neurological: Reports: CVA Endocrine/Metabolic: Reports: Diabetes, type II - Tobacco Use Tobacco Use Status *Q: Current Every Day Tobacco User Years of Tobacco use: 5 Packs/Tins Daily: 1 - Caffeine Use Caffeine Use: Reports: Coffee, Energy Drinks, Soda - Recreational Drug Use Recreational Drug Use: No ED ROS GENERAL - Review of Systems Review Of Systems: Comprehensive ROS is negative, except as noted in HPI. ED EXAM, GI/ABD - Physical Exam Exam: See Below Text/Narrative:: I have reviewed the triage vital signs Const: Well nourished, well developed, appears stated age Eyes: no conjunctival injection HENT: No signs of trauma or swelling, Neck supple without meningismus CV: Regular Rate Rhythm, Warm, well-perfused extremities RESP: Unlabored respiratory effort MSK: No gross deformities appreciated Rectal: (ADAMA Walker present) several external hemorrhoids were noted. These are tender to the touch but no evidence of thrombosed hemorrhoid. No active bleeding. No surrounding erythema or swelling. Skin: Warm, dry. No rashes Neuro: Alert, surgical aide II-XII grossly intact. Sensation and motor function of extremities grossly intact. Psych: Appropriate mood and affect. Course - Vital Signs Last Recorded V/S: Last Vital Signs Temp 36.1 C 06/27/21 22:44 Pulse 91 06/27/21 22:44 Resp 18 06/27/21 22:44 BP 152/82 H 06/27/21 22:44 Pulse Ox 100 06/27/21 22:44 - Orders/Labs/Meds Meds: Medications Discontinued Medications Generic Name Dose Route Start Last Admin Trade Name P[place]ito PRN Reason Stop Dose Admin Ibuprofen 600 mg 06/27/21 23:31 Ibuprofen 600 Mg Tab PO 06/27/21 23:32 ONETIME ONE Lidocaine HCl 5 ml 06/27/21 23:31 Lidocaine 2% Jelly 5 Ml Tube TOP 06/27/21 23:32 ONETIME ONE Departure - Departure Time of Disposition: 23:35 Disposition: Home, Self-Care 01 Clinical Impression: Hemorrhoids - Discharge Information Prescriptions: Lidocaine/Phenyl/Glycer/Petrol [Preparation H Rapid-Lido Cream] 28 gm TP BID 10 Days #28 cream..g. Nitroglycerin [Rectiv] 1 inch TD BID 10 Days #30 oint...g. Instructions: Hemorrhoids, [id number] Referrals: PCP,None [Primary Care Provider] - Forms: ED Department Discharge Additional Instructions: Recommend use of 400 mg ibuprofen every 8 hours. In addition, restart your stool softeners. Take other medications as directed. Sepsis Event Note (ED) - Focused Exam Vital Signs: Vital Signs Temp Pulse Resp BP Pulse Ox 06/27/21 22:44 36.1 C 91 18 152/82 H 100 - Assessment/Plan Assessment:: Patient is 36-year-old female with hemorrhoids. No evidence of infectious pr ocess or thrombosed hemorrhoids. Given prescriptions for pain relief. Urged to follow-up with primary care or general surgery within the next 1 week. Return precautions given as usual. Patient agrees with plan of care.
== END 2021-06-27 23:59 | disposition home or self-care (01) ==
LOC: JD.ED 22:27
DX: K64.4 Residual hemorrhoidal skin tags (principal); E66.9 Obesity, unspecified; Z88.5 Allergy status to narcotic agent; Z72.0 Tobacco use; Z68.33 Body mass index [BMI] 33.0-33.9, adult
CPT/HCPCS: 99282; A9270

== ENCOUNTER 2021-07-27 04:08 | Emergency (ER) | payer SELFPAY ==
--- NOTE | 2021-07-27 05:05 | EDM.PDOC ---
ED HPI GENERAL MEDICAL PROBLEM - General Chief Complaint: ENT Problem Stated Complaint: DYSPHAGIA Time Seen by Provider: 07/27/21 04:51 - History of Present Illness INITIAL COMMENTS - FREE TEXT/NARRATIVE: 36-year-old female presents the emergency room with a sore throat and losing her voice. Patient developed a sore throat on [place] this is progressively gotten worse now she is losing her voice. It is difficult for her to swallow she is not having trouble clearing her secretions however and can drink fluids. Solid foods are quite difficult. She is not aware of any fevers or chills. She had a history of mono in the past roughly 2 years ago. She has not had any breathing difficulties or shortness of breath. She has not had the Covid or influenza vaccine. Throat Pain Score (Numeric/FACES): 7 - Related Data Allergies Allergy/AdvReac Type Severity Reaction Status Date / Time morphine Allergy Rash Verified 07/27/21 04:17 Home Meds: Home Meds Ferrous Sulfate [Iron] 325 mg PO BID 06/11/20 [History] Lidocaine/Phenyl/Glycer/Petrol [Preparation H Rapid-Lido Cream] 28 gm TP BID 10 Days #28 cream..g. 06/27/21 [Rx] Nitroglycerin [Rectiv] 1 inch TD BID 10 Days #30 oint...g. 06/27/21 [Rx] estradioL [Park] 1 patch TOP ASDIRECTED 06/27/21 [History] Past Medical History HEENT History: Reports: Impaired Vision Other HEENT History: wears eyeglasses. Deviated septum. Cardiovascular History: Reports: Other (See Below) Other Cardiovascular History: Mitral valve prolapse, palpitations, racing heart beat Respiratory History: Reports: Asthma, Bronchitis, Recurrent Gastrointestinal History: Reports: GERD Genitourinary History: Reports: UTI, Recurrent, Other (See Below) Other Genitourinary History: Cyst on kidney DIRECTOR OF STUDENT FINANCIAL AID History: Reports: 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, , Other (See Below) Other DIRECTOR OF STUDENT FINANCIAL AID History: PALLAVI III with severe dysplasia, endometriosis, PCOS, pelvic pain, exploratory laparotomy Musculoskeletal History: Reports: Fracture, Other (See Below) Other Musculoskeletal History: right arm fracture, right rotator cuff tear Neurological History: Reports: None Psychiatric History: Reports: Anxiety Endocrine/Metabolic History: Reports: Obesity/BMI 30+ Hematologic History: Reports: Anemia Immunologic History: Reports: None Oncologic (Cancer) History: Reports: None Dermatologic History: Reports: None - Infectious Disease History Infectious Disease History: Reports: Influenza, MRSA, Novel Coronavirus, Other (See Below) Other Infectious Disease History: 06/09 has screened negative for mrsa - Past Surgical History Head Surgeries/Procedures: Reports: None HEENT Surgical History: Reports: Oral Surgery Other HEENT Surgeries/Procedures: wisdom teeth removed. Cardiovascular Surgical History: Reports: None Respiratory Surgical History: Reports: None GI Surgical History: Reports: Colonoscopy, EGD Female Surgical History: Reports: Hysterectomy, Salpingo-Oophorectomy Endocrine Surgical History: Reports: None Neurological Surgical History: Reports: None Musculoskeletal Surgical History: Reports: None Oncologic Surgical History: Reports: None Dermatological Surgical History: Reports: None Social & Family History - Family History Family Medical History: No Pertinent Family History Cardiac: Reports: Heart Valve Replacement, Hypertension Neurological: Reports: CVA Endocrine/Metabolic: Reports: Diabetes, type II - Tobacco Use Tobacco Use Status *Q: Unknown Ever Used Tobacco - Caffeine Use Caffeine Use: Reports: Coffee, Energy Drinks, Soda ED ROS GENERAL - Review of Systems Review Of Systems: See Below Constitutional: Reports: No Symptoms HEENT: Reports: Throat Pain Respiratory: Reports: No Symptoms Cardiovascular: Reports: No Symptoms Endocrine: Reports: No Symptoms GI/Abdominal: Reports: No Symptoms : Reports: No Symptoms Musculoskeletal: Reports: No Symptoms ED EXAM, GENERAL - Physical Exam Exam: See Below Exam Limited By: No Limitations General Appearance: Alert, No Apparent Distress, Obese Eye Exam: Bilateral Eye: Normal Inspection Ears: Normal External Exam, Normal Canal, Hearing Grossly Normal, Normal TMs Nose: Normal Inspection, Normal Mucosa, No Blood Throat/Mouth: Other (Tonsils swollen minimal erythema scant exudate) Head: Atraumatic, Normocephalic Neck: Normal Inspection, Supple, Non-Tender, Full Range of Motion. No: Lymphadenopathy (L), Lymphadenopathy (R) Respiratory/Chest: No Respiratory Distress, Lungs Clear, Normal Breath Sounds Cardiovascular: Regular Rate, Rhythm, No Edema, No Murmur GI/Abdominal: Normal Bowel Sounds, Soft, Non-Tender. No: Hepatomegaly, Splenomegaly Back Exam: Normal Inspection. No: CVA Tenderness (L), CVA Tenderness (R) Neurological: Alert, Oriented, Normal Cognition Course - Vital Signs Last Recorded V/S: Last Vital Signs Temp 36.6 C 07/27/21 04:19 Pulse 100 07/27/21 04:19 Resp 15 07/27/21 04:19 BP 115/74 07/27/21 04:19 Pulse Ox 97 07/27/21 04:19 - Orders/Labs/Meds Orders: Active Orders 24 hr Category Date Time Status COVID-19/FLU A+B [[facility]] Stat Lab 07/27/21 04:15 Received STREP A BY PCR [[facility]] Stat Lab 07/27/21 04:15 Received - Re-Assessments/Exams Free Text/Narrative Re-Assessment/Exam: 07/27/21 05:31 She has positive influenza A Covid negative influenza B negative group A strep negative. She is well past the time to consider Tamiflu. Departure - Departure Time of Disposition: 05:32 Disposition: Home, Self-Care 01 Clinical Impression: Influenza A, Acute viral pharyngitis - Discharge Information Referrals: PCP,None [Primary Care Provider] - Additional Instructions: Return to the emergency room with any questions problems or worsening symptoms. Clear liquid diet. After 24 hours slowly advance as tolerated. Push lots of fluids at this point. Tylenol as needed for fever and discomfort. Sepsis Event Note (ED) - Evaluation Sepsis Screening Result: No Definite Risk - Focused Exam Vital Signs: Vital Signs Temp Pulse Resp BP Pulse Ox 07/27/21 04:19 36.6 C 100 15 115/74 97 - My Orders Last 24 Hours: My Active Orders 07/27/21 04:15 COVID-19/FLU A+B [[facility]] Stat STREP A BY PCR [[facility]] Stat - Assessment/Plan Last 24 Hours: My Active Orders 07/27/21 04:15 COVID-19/FLU A+B [[facility]] Stat STREP A BY PCR [[facility]] Stat
[2021-07-27 05:06] LABS: CORONAVIRUS COVID-19 NAA NEGATIVE (NEGATIVE)
[2021-07-27] MEDS ORDERED: Lactated Ringers 1,000 ML IV SCH (05:15)
== END 2021-07-27 05:39 | disposition home or self-care (01) ==
LOC: JD.ED 04:08
DX: J10.1 Influenza due to other identified influenza virus with other respiratory manifestations (principal); J45.909 Unspecified asthma, uncomplicated; D64.9 Anemia, unspecified; E66.9 Obesity, unspecified; Z68.37 Body mass index [BMI] 37.0-37.9, adult; Z88.5 Allergy status to narcotic agent; Z79.899 Other long term (current) drug therapy; Z20.822 Contact with and (suspected) exposure to COVID-19
CPT/HCPCS: 0240U; 87651; 99283

== ENCOUNTER 2021-12-07 21:20 | Emergency (ER) | payer BC ==
[2021-12-07] MEDS ORDERED: Sulfamethoxazole/Trimethoprim 800-160 MG Tab PO ONE (22:31)
== END 2021-12-07 22:40 | disposition home or self-care (01) ==
LOC: JD.ED 21:20
DX: L03.113 Cellulitis of right upper limb (principal); E66.9 Obesity, unspecified; Z68.37 Body mass index [BMI] 37.0-37.9, adult; Z88.5 Allergy status to narcotic agent; Z72.0 Tobacco use
CPT/HCPCS: 99283; A9270

== ENCOUNTER 2022-02-04 19:48 | Emergency (ER) | payer BC ==
[2022-02-04] MEDS ORDERED: Haloperidol Lactate 5 MG/ML SDV IM ONE (20:14)
[2022-02-04] MEDS ORDERED: Ondansetron 4 MG/2 ML SDV IVPUSH ONE (20:14)
[2022-02-04] MEDS ORDERED: Sodium Chloride 0.9% 1,000 ML IV ONE (20:14)
[2022-02-04] MEDS ORDERED: Benztropine 1 MG Tab PO ONE (20:14)
[2022-02-04 20:35] LABS: ESTIMATED GFR 116 mL/min (>60)
== END 2022-02-04 22:49 | disposition home or self-care (01) ==
LOC: JD.ED 19:48
DX: G43.909 Migraine, unspecified, not intractable, without status migrainosus (principal); E66.9 Obesity, unspecified; Z68.30 Body mass index [BMI] 30.0-30.9, adult; Z88.5 Allergy status to narcotic agent; Z79.899 Other long term (current) drug therapy; Z86.16 Personal history of COVID-19; Z90.710 Acquired absence of both cervix and uterus
CPT/HCPCS: 36415; 70450; 80053; 85025; 85610; 85730; 96361; 96372; 96374; 99284; A9270; J1630; J2405; J7030

== ENCOUNTER 2022-03-28 11:43 | Emergency (ER) | payer BC ==
[2022-03-28] MEDS ORDERED: Ondansetron 4 MG/2 ML SDV IVPUSH ONE (12:24)
[2022-03-28] MEDS ORDERED: Sodium Chloride 0.9% 1,000 ML IV STA (12:24)
[2022-03-28] MEDS ORDERED: HYDROmorphone 0.5 MG/0.5 ML Syringe IVPUSH ONE (12:24)
[2022-03-28] MEDS: Sodium Chloride 0.9% 10 ML Syringe FLUSH PRN ×2 (12:46→13:24)
[2022-03-28] MEDS ORDERED: Iopamidol 612 MG/ML 100 ML Bottle IVPUSH ONE (13:23)
[2022-03-28] MEDS ORDERED: Sodium Chloride 0.9% 10 ML Syringe FLUSH PRN (13:23)
[2022-03-28] MEDS ORDERED: Ketorolac 30 MG/ML SDV IVPUSH ONE (14:28)
== END 2022-03-28 15:36 ==
LOC: JD.ED 11:43
DX: U07.1 COVID-19 (principal); M54.50 Low back pain, unspecified; K21.9 Gastro-esophageal reflux disease without esophagitis; F17.210 Nicotine dependence, cigarettes, uncomplicated; E66.9 Obesity, unspecified; Z68.37 Body mass index [BMI] 37.0-37.9, adult; Z88.5 Allergy status to narcotic agent; Z79.899 Other long term (current) drug therapy
CPT/HCPCS: 36415; 72129; 72132; 73701; 80053; 81001; 84703; 85025; 85652; 86140; 87040; 87635; 96361; 96374; 96375; 99284; J1170; J1885; J2405; J3490; J7030; Q9967; U0002

== ENCOUNTER 2023-02-23 18:03 | Observation (INO) | payer BC ==
[~2023-02-23 18:03] MED LIST changes: -Dexamethasone 4 MG/ML 5 ML MDV ONE; -Lactated Ringers 1,000 ML IV SCH; -Lidocaine 1% 4 ML ONE; -Lidocaine 1%/Sod Bicarbonate in NS 8.4% 1 ML Syringe IDERM PRN; -Midazolam 1 MG/ML 2 ML SDV ONE; -Ondansetron 4 MG/2 ML SDV ONE; -Propofol 200 MG/20 ML SDV ONE; -Rocuronium 50 MG/5 ML Vial ONE; -Sodium Chloride 0.9% 10 ML Syringe FLUSH PRN; +ceFAZolin 2 GM in Sodium Chloride 0.9% 50 ML IV SCH; -fentaNYL 250 MCG/5 ML SDV ONE
[2023-02-23] MEDS ORDERED: HYDROmorphone 1 MG/ML Syringe IVPUSH ONE (18:26)
[2023-02-23] MEDS ORDERED: Ondansetron 4 MG/2 ML SDV IVPUSH ONE (18:26)
[2023-02-23] MEDS ORDERED: Sodium Chloride 0.9% 1,000 ML IV ONE (18:26)
[2023-02-23] MEDS ORDERED: Sodium Chloride 0.9% 10 ML Syringe FLUSH PRN (18:26)
[2023-02-23 18:37] LABS: APPEARANCE,URINE SLT CLOUDY (Clear); BILIRUBIN,URINE NEGATIVE (Negative); COLOR,URINE YELLOW (Yellow); GLUCOSE,URINE NEGATIVE (Negative); KETONES,URINE NEGATIVE (Negative); LEUKOCYTE ESTERASE,URINE TRACE (Negative); NITRITE,URINE POSITIVE (Negative); OCCULT BLOOD,URINE TRACE-INTACT (Negative); PROTEIN,URINE NEGATIVE (Negative); UROBILINOGEN,URINE 0.2 (0.2-1.0)
[2023-02-23 18:45] LABS: BACTERIA,URINE MANY /hpf (FEW); MUCUS,URINE FEW /hpf (FEW); RBC,URINE 0-5 /hpf (0-5)
[2023-02-23] MEDS ORDERED: Iopamidol 612 MG/ML 100 ML Bottle IVPUSH ONE (18:46)
[2023-02-23] MEDS ORDERED: cefTRIAXone 2 GM in Sodium Chloride 0.9% 100 ML IV ONE (19:12)
[2023-02-23 19:15] LABS: BASOPHILS ABSOLUTE AUTO 0.04 K/mm3 (0.01-0.08); BASOPHILS PERCENT AUTO 0.4 % (0.1-1.2); EOSINOPHILS ABSOLUTE AUTO 0.39 K/mm3 (0.04-0.36); EOSINOPHILS PERCENT AUTO 3.9 (0.7-5.8); HEMATOCRIT 39.6 % (34.1-44.9); HEMOGLOBIN 13.1 gm/dl (11.2-15.7); IMMATURE GRAN ABSOLUTE AUTO 0.01 K/mm3 (0.00-0.10); IMMATURE GRAN PERCENT AUTO 0.1 % (<=1.0); LYMPHOCYTES ABSOLUTE AUTO 2.08 K/mm3 (1.18-3.74); LYMPHOCYTES PERCENT AUTO 20.8 % (19.3-51.7); MEAN CORPUSCULAR HEMOGLOBIN 30.5 pg (25.6-32.2); MEAN CORPUSCULAR HGB CONC 33.1 g/dl (32.2-35.5); MEAN CORPUSCULAR VOLUME 92.3 fl (79.4-94.8); MONOCYTES ABSOLUTE AUTO 0.83 K/mm3 (0.24-0.36); MONOCYTES PERCENT AUTO 8.3 % (4.7-12.5); NEUTROPHILS ABSOLUTE AUTO 6.65 K/mm3 (1.56-6.13); NEUTROPHILS PERCENT AUTO 66.5 % (34.0-71.1); PLATELET COUNT,PLT 222 K/mm3 (182-369); RED BLOOD CELL COUNT 4.29 M/mm3 (3.98-5.22)
[2023-02-23 19:36] LABS: A/G RATIO 0.9 (1-2); ALBUMIN 3.2 g/dl (3.4-5.0); ANION GAP 11.8 (5-15); BILIRUBIN TOTAL 0.1 mg/dL (0.2-1.0); BUN/CREATININE RATIO 15.7 (14-18); C-REACTIVE PROTEIN 0.7 mg/dL (<1.0); CREATININE 0.7 mg/dL (0.55-1.02); EST CRCL DRUG DOSING (CG) 113.16 mL/min; MAGNESIUM 1.9 mg/dL (1.8-2.4); POTASSIUM,K 3.8 mEq/L (3.5-5.1); PROTEIN TOTAL,TP 6.7 g/dl (6.4-8.2)
[2023-02-23] MEDS ORDERED: fentaNYL 100 MCG/2 ML SDV IVPUSH ONE (20:18)
[2023-02-23] MEDS ORDERED: metroNIDAZOLE/Normal Saline 500 MG in Premix Bag 1 BAG IV ONE (20:36)
[2023-02-23] MEDS ORDERED: Albuterol 0.083% 2.5 MG/3 ML Neb Soln NEB ONE (21:01)
[2023-02-23] MEDS ORDERED: Bupivacaine 0.5%/EPINEPHrine 1:200,000 50 ML MDV ONE (21:05)
[2023-02-23] MEDS ORDERED: ceFAZolin 1 GM Vial ONE (21:05)
[2023-02-23] MEDS ORDERED: Midazolam 1 MG/ML 2 ML SDV ONE (21:09)
[2023-02-23] MEDS ORDERED: Ondansetron 4 MG/2 ML SDV ONE (21:09)
[2023-02-23] MEDS ORDERED: Lidocaine 1% 5 ML VIAL ONE (21:09)
[2023-02-23] MEDS ORDERED: Rocuronium 50 MG/5 ML Vial ONE (21:09)
[2023-02-23] MEDS ORDERED: fentaNYL 250 MCG/5 ML SDV ONE (21:09)
[2023-02-23] MEDS ORDERED: Succinylcholine 200 MG/10 ML MDV ONE (21:09)
[2023-02-23] MEDS ORDERED: Propofol 200 MG/20 ML SDV ONE (21:09)
[2023-02-23] MEDS ORDERED: Lactated Ringers 1,000 ML ONE (21:19)
[2023-02-23] MEDS ORDERED: Dexamethasone 4 MG/ML 5 ML MDV ONE (21:49)
[2023-02-23] MEDS ORDERED: fentaNYL 100 MCG/2 ML SDV IVPUSH PRN (21:54)
[2023-02-23] MEDS ORDERED: Ondansetron 4 MG/2 ML SDV IVPUSH PRN (21:54)
[2023-02-23] MEDS ORDERED: ePHEDrine 50 MG/ML SDV ONE (21:56)
[2023-02-23] MEDS ORDERED: Neostigmine Methylsulfate 10 MG/10 ML MDV ONE (22:09)
[2023-02-23] MEDS ORDERED: Sugammadex Sodium 200 MG/2 ML VIAL ONE ×2 (22:27→22:35)
[2023-02-23] MEDS ORDERED: Naloxone 0.4 MG/ML SDV IVPUSH PRN (22:43)
[2023-02-23] MEDS ORDERED: Ondansetron 8 MG in Sodium Chloride 0.9% 50 ML IV PRN (22:43)
[2023-02-23] MEDS ORDERED: Lactated Ringers 1,000 ML IV SCH (22:45)
[2023-02-23] MEDS ORDERED: Ketorolac 30 MG/ML SDV ONE (22:46)
[2023-02-24] MEDS: HYDROmorphone 0.5 MG/0.5 ML Syringe IVPUSH PRN ×2 (01:59→08:36)
[2023-02-24] MEDS: ceFAZolin 2 GM in Sodium Chloride 0.9% 50 ML IV SCH ×2 (04:13→11:41)
[2023-02-24] MEDS ORDERED: Ketorolac 30 MG/ML SDV IVPUSH PRN (04:30)
[2023-02-24] MEDS ORDERED: metroNIDAZOLE/Normal Saline 500 MG in Premix Bag 1 BAG IV SCH (06:00)
[2023-02-24] MEDS ORDERED: Polyethylene Glycol 3350 Powder 17 GM Packet PO ONE (12:08)
[2023-02-24] MEDS ORDERED: Docusate Sodium 100 MG Cap PO PRN (12:08)
[2023-02-24] MEDS ORDERED: Sennosides 8.6 MG Tab PO SCH (12:15)
== END 2023-02-24 13:38 | disposition home or self-care (01) ==
LOC: JD.ED 18:03 → JD.SDS 20:54 → JD.MS 22:43
PROVIDERS: ADMIT Specialist; ATTEND Specialist
DX: K35.80 Unspecified acute appendicitis (principal); J45.909 Unspecified asthma, uncomplicated; I34.1 Nonrheumatic mitral (valve) prolapse; R00.2 Palpitations; K21.9 Gastro-esophageal reflux disease without esophagitis; D64.9 Anemia, unspecified; E66.9 Obesity, unspecified; E28.2 Polycystic ovarian syndrome; U07.1 COVID-19; A49.02 Methicillin resistant Staphylococcus aureus infection, unspecified site; Z90.710 Acquired absence of both cervix and uterus; Z88.5 Allergy status to narcotic agent; Z79.899 Other long term (current) drug therapy
CPT/HCPCS: 00840; 36415; 74177; 74177-26; 80053; 81001; 83690; 83735; 85025; 86140; 87086; 87088; 87186; 94640; 96361; 96365; 96366; 96367; 96375; 99140; 99285; 99285-25; A9270-GY; J0330; J0690; J0696; J1100; J1170; J1885; J2250; J2405; J2704; J2710; J3010; J3490; J7030; J7120; J7620-GY; Q9967

== ENCOUNTER 2023-09-06 19:57 | Emergency (ER) | payer BC ==
[2023-09-06] MEDS: Sodium Chloride 0.9% 1,000 ML IV ONE (21:07)
[2023-09-06] MEDS: Ondansetron 4 MG/2 ML SDV IVPUSH ONE (21:07)
[2023-09-06] MEDS: Ketorolac 30 MG/ML SDV IVPUSH ONE (21:07)
[2023-09-06 21:15] LABS: BASOPHILS ABSOLUTE AUTO 0.1 K/mm3 (0.0-0.2); BASOPHILS PERCENT AUTO 0.8 % (0.0-1.0); EOSINOPHILS ABSOLUTE AUTO 0.6 K/mm3 (0.0-0.4); EOSINOPHILS PERCENT AUTO 5.7 % (0.0-6.0); HEMATOCRIT 43.7 % (37.0-47.0); HEMOGLOBIN 14.5 gm/dl (12.0-16.0); IMMATURE GRAN ABSOLUTE AUTO 0.03 K/mm3 (0.00-0.05); IMMATURE GRAN PERCENT AUTO 0.3 % (0.0-0.4); LYMPHOCYTES ABSOLUTE AUTO 2.1 K/mm3 (1.0-4.8); MEAN CORPUSCULAR HEMOGLOBIN 30.4 pg (28.0-32.0); MEAN CORPUSCULAR HGB CONC 33.2 g/dl (32.0-36.0); MEAN CORPUSCULAR VOLUME 91.6 fl (83.0-99.0); MEAN PLATELET VOLUME 10.3 fl (9.4-12.3); MONOCYTES ABSOLUTE AUTO 0.6 K/mm3 (0.0-0.8); NEUTROPHILS ABSOLUTE AUTO 6.6 K/mm3 (1.8-7.7); NEUTROPHILS PERCENT AUTO 66.2 % (41.0-71.0); PLATELET COUNT,PLT 207 K/mm3 (150-400); RED BLOOD CELL COUNT 4.77 M/mm3 (4.10-5.30); WHITE BLOOD CELL COUNT,WBC 10.02 K/mm3 (3.9-11.3)
[2023-09-06 21:47] LABS: ALANINE AMINOTRANSFERASE,ALT 22 U/L (14-59); ALBUMIN 3.9 g/dl (3.4-5.0); ALKALINE PHOSPHATASE 93 U/L (46-116); ANION GAP 12.3 (5-15); ASPARTATE AMNIOTRANSFERASE,AST 12 U/L (15-37); BILIRUBIN TOTAL 0.2 mg/dL (0.2-1.0); BLOOD UREA NITROGEN,BUN 8 mg/dL (7-18); CALCIUM 8.8 mg/dL (8.5-10.1); CARBON DIOXIDE,CO2 27 mEq/L (21-32); CHLORIDE,CL 103 mEq/L (98-107); ESTIMATED GFR 75 mL/min (>60); GLUCOSE RANDOM 86 mg/dL (70-99); POTASSIUM,K 3.3 mEq/L (3.5-5.1); PROTEIN TOTAL,TP 7.9 g/dl (6.4-8.2); SODIUM,NA 139 mEq/L (136-145); TROPONIN I HIGH SENSITIVITY 4 pg/mL (<=51)
[2023-09-06 21:49] LABS: INR 0.97; PROTHROMBIN TIME 10.4 SECONDS (9.7-12.0)
[2023-09-06 21:51] LABS: PTT,PARTIAL THROMBOPLSTIN TIME 31.6 SECONDS (21.7-31.4)
[2023-09-06 22:00] LABS: APPEARANCE,URINE CLEAR (Clear); BILIRUBIN,URINE NEGATIVE (Negative); COLOR,URINE YELLOW (Yellow); GLUCOSE,URINE NEGATIVE (Negative); KETONES,URINE NEGATIVE (Negative); LEUKOCYTE ESTERASE,URINE NEGATIVE (Negative); NITRITE,URINE NEGATIVE (Negative); OCCULT BLOOD,URINE NEGATIVE (Negative); PROTEIN,URINE NEGATIVE (Negative); UROBILINOGEN,URINE 0.2 (0.2-1.0)
== END 2023-09-06 23:22 | disposition home or self-care (01) ==
LOC: JD.ED 19:57
DX: R10.12 Left upper quadrant pain (principal); J45.909 Unspecified asthma, uncomplicated; E66.9 Obesity, unspecified; Z86.16 Personal history of COVID-19; Z88.5 Allergy status to narcotic agent; Z79.899 Other long term (current) drug therapy
CPT/HCPCS: 36415; 74176; 80053; 81003; 84484; 85025; 85610; 85730; 96374; 96375; 99284; J1885; J2405; J7030

== ENCOUNTER 2024-01-13 12:03 | Emergency (ER) | payer BC ==
[2024-01-13] MEDS: fentaNYL 100 MCG/2 ML SDV IVPUSH ONE ×2 (12:44→13:52)
[2024-01-13] MEDS ORDERED: Naloxone 0.4 MG/ML SDV IVPUSH PRN (14:10)
[2024-01-13] MEDS: HYDROmorphone 0.5 MG/0.5 ML Syringe IVPUSH ONE (14:18)
== END 2024-01-13 15:05 | disposition home or self-care (01) ==
LOC: JD.ED 12:03
DX: S82.851A Displaced trimalleolar fracture of right lower leg, initial encounter for closed fracture (principal); E66.9 Obesity, unspecified; F17.210 Nicotine dependence, cigarettes, uncomplicated; Z86.16 Personal history of COVID-19; Z90.710 Acquired absence of both cervix and uterus; Z79.899 Other long term (current) drug therapy; Z68.32 Body mass index [BMI] 32.0-32.9, adult; W19.XXXA Unspecified fall, initial encounter
CPT/HCPCS: 29505; 73502; 73610; 96374; 96375; 96376; 99283; J1170; J3010; 29515; 99282

== ENCOUNTER 2024-01-23 17:32 | Emergency (ER) | payer BC | END 2024-01-23 17:57 | disposition left against medical advice (07) | LOC: JD.ED 17:32 | DX: Z53.21 Procedure and treatment not carried out due to patient leaving prior to being seen by health care provider (principal) ==